=== PATIENT | male | born 1935 | race Caucasian/White ===

== ENCOUNTER 2016-12-29 12:18 | Emergency (ER) | payer MEDICARE, OTHER ==
[2016-12-29 13:20] LABS: BASO % 0.6 % (0.0-1.0); EOS % 0.7 % (0.0-3.0); LARGE UNSTAINED CELL # 0.1 K/mm3 (0.0-0.4); LARGE UNSTAINED CELL % 0.9 % (0.0-4.0); LYMPH # 0.5 K/mm3 (1.5-4.5); LYMPH % 5.9 % (24.0-44.0); MEAN CORPUSCULAR HEMOGLOBIN 30.9 pg (27.0-33.0); MEAN CORPUSCULAR HGB CONC 32.6 g/dl (32.0-36.5); MONO # 0.4 K/mm3 (0.0-0.8); MONO % 6.5 % (0.0-5.0); NEUTROPHILS # 5.8 K/mm3 (1.8-7.7); NEUTROPHILS % 85.4 % (36.0-66.0); PLATELET COUNT, AUTOMATED 149 k/mm3 (150-450); WHITE BLOOD COUNT 6.7 K/mm3 (4.0-10.0)
[2016-12-29 13:29] LABS: INR 0.95
[2016-12-29 13:37] LABS: CREATININE FOR GFR 1.33 MG/DL (0.70-1.30); GLOMERULAR FILTRATION RATE 54.9 (>35); POTASSIUM SERUM 4.1 MEQ/L (3.5-5.1)
[2016-12-29] MEDS ORDERED: CLOPIDOGREL 75 MG TAB As Ordered ONE (15:30)
--- NOTE | 2016-12-29 15:48 | EDDOCDS ---
Physician Documentation [facility] Name: Pablo Claudio Age: 81 yrs Sex: Male : 1935 Arrival Date: 12/29/2016 Time: 12:18 Bed 18 Private MD: Jaguar Bloom Disposition: 12/29 15:26 Critical Care: Critical care not applicable. danisha Disposition: 12/29/16 15:18 Discharged to Home/Self Care. Impression: Other peripheral vascular diseases - arterial, with toe pain. - Condition is Stable. - Discharge Instructions: Peripheral Vascular Disease. - Prescriptions for Plavix 75 mg Oral Tablet - take 1 tablet by ORAL route once daily; 20 tablet. - Medication Reconciliation, Local Pharmacy Hours form. - Follow up: Private Physician; When: Call to arrange an appointment; Reason: Recheck today's complaints, Continuance of care. - Problem is new. - Symptoms are unchanged. - Notes: Call [facility] Vascular Surgery, 1st thing Saturday morning , to schedule a same day appointment with Dr Esposito or one of his colleagues Fill prescription for Plavix and start tomorrow (1st dose given in the ED) Return to the ED for any further concerns Historical: - Allergies: Methotrexate (affecting kidneys); Metformin HCl (affects kidneys); - Home Meds: 1. levothyroxine 112 mcg oral cap once daily 2. Nexium 40 mg Oral cpDR 1 cap once daily 3. metoprolol tartrate 25 mg Oral tab 1 tab 2 times per day 4. aspirin 81 mg Oral chew 1 tab once daily 5. Tradjenta 5 mg oral tab 1 tab once daily 6. folic acid 1 mg Oral tab once daily 7. furosemide 20 mg Oral tab 1 tab once daily 8. ibersartan 9. docusate sodium 100 mg Oral cap 1 cap once daily 10. Vitamin D Oral 1000 unit daily 11. Crestor 5 mg Oral tab 1 tab once daily 12. gabapentin 300 mg Oral Tb24 three times a day - PMHx: [place]; Thyroid problem; Hypercholesterolemia; Hypertension; Diabetes - NIDDM: controlled; kidney failure; - PSHx: Carotid Endarterectomy; Angioplasty; cardiac bypass; memory problems; - Social history: Smoking status: Patient states former smoker of tobacco. No barriers to communication noted, The patient speaks fluent Belarusian, Speaks appropriately for age. - Family history: Not pertinent. - : The pt / caregiver states he / she is not on anticoagulants. Home medication list is obtained from the patient, family members. - Exposure Risk Screening:: None identified. Vital Signs: 12:20 BP 205 / 90; Pulse 84; Resp 18; Temp 97.1(O); Pulse Ox 95% on R/A; Weight 83.46 kg / lr2 184 lbs (R); Height 5 ft. 8 in. (172.72 cm) (R); Pain 3/10; 13:24 BP 167 / 79 RA Sitting (auto/); jf3 14:30 BP 172 / ??? LA Sitting; jf3 14:30 BP 176 / ??? RA Sitting; jf3 14:30 BP 118 / ??? RL Sitting; jf3 14:30 BP 162 / ??? LL Sitting; jf3 15:39 BP 190 / 86 RA Sitting (man/lg); Pulse 73; Resp 18; Temp 98.6(O); Pulse Ox 99% on R/A; nb2 Pain 0/10; 12:20 Body Mass Index 27.98 (83.46 kg, 172.72 cm) lr2 14:30 doppler brachial SBP jf3 14:30 doppler brachial SBP jf3 14:30 doppler anterior ankle SBP jf3 14:30 doppler anterior ankle SBP jf3 15:39 RN aware of BP nb2 MDM: 12:36 Misc. Nursing Order ordered. le 12:52 IV Saline Lock ordered. le 12:52 morphine 2 mg IVP every 15 minutes; Document pain score/vitals after each dose (Hold if le SBP < 90mmHg) x3 ordered. 12:53 CBC with Diff Ordered. EDMS 12:53 BMP Ordered. EDMS 12:53 PTT Ordered. EDMS 12:53 PT/INR Ordered. EDMS 12:58 Lactic Acid (Hallman tube on ice) Ordered. EDMS 13:18 Financial registration complete. lg 13:41 CBC with Diff Reviewed. le 13:41 BMP Reviewed. le 13:41 PTT Reviewed. le 13:41 PT/INR Reviewed. le 13:41 Lactic Acid (Hallman tube on ice) Reviewed. le 13:48 Misc. Nursing Order ordered. le 13:53 [facility] [place] Payment Agreement was scanned into [employer] and attached to record. lg 15:13 Plavix - Clopidogrel 75 mg PO once ordered. le 15:15 Fluid Challenge ordered. le 15:47 morphine 2 mg IVP every 15 minutes; Document pain score/vitals after each dose (Hold if jf3 SBP < 90mmHg) x3 ordered. Administered Medications: 15:32 Drug: Plavix - Clopidogrel 75 mg [clopidogrel 75 mg tablet (1 tabs)] Route: PO; dsf 15:47 Follow up: Response: Pt left department before re-evaluation is appropriate jf3 15:47 Not Given (Patient Refused): morphine 2 mg IVP every 15 minutes; Document pain jf3 score/vitals after each dose (Hold if SBP < 90mmHg) x3 Signatures: Dispatcher [employer] EDMS Olga Marcelo RN RN srm James Carey, Nilesh Reg lg Rossy Arias FNP SPREADING MACHINE OPERATORLenny Foster RN RN jf3 Juliette Valdez RN dsf The chart was reviewed and I authenticate all verbal orders and agree with the evaluation and treatment provided.Attachments: 13:53 [facility] Payment Agreement lg MTDD
--- NOTE | 2016-12-29 15:48 | EDDOCDS ---
Nurse's Notes [facility] Name: Pablo Claudio Age: 81 yrs Sex: Male : 1935 Arrival Date: 12/29/2016 Time: 12:18 Bed 18 Private MD: Jaguar Bloom Diagnosis: Other peripheral vascular diseases-arterial, with toe pain Presentation: 12/29 12:28 Presenting complaint: states: went to [facility] for pain in right pinky srm toe for 2-3 days. had xray done. provider there stated no pulses to right foot and toes turning black. Adult Sepsis Screening: The patient does not have new or worsening altered mentation. Patient's respiratory rate is less than 22. Systolic blood pressure is greater than 100. Patient has a qSOFA score of 0- Negative Sepsis Screen. Suicide/Homicide risk assessment- the patient denies having any suicidal and/or homicidal ideations and does not present with any other emotional, behavioral or mental health complaints. Status: Patient is not a director of cardiopulmonary services or dependent. Transition of care: patient was not received from another setting of care. 12:28 Acuity: FLORINDA Level 3 [facility] 12:28 Method Of Arrival: Wheelchair [facility] Triage Assessment: 12:38 General: Appears in no apparent distress, Behavior is appropriate for age, cooperative. srm Pain: Pain currently is 2 out of 10 on a pain scale. At worst was 10 out of 10 on a pain scale. Derm: Historical: - Allergies: Methotrexate (affecting kidneys); Metformin HCl (affects kidneys); - Home Meds: 1. levothyroxine 112 mcg oral cap once daily 2. Nexium 40 mg Oral cpDR 1 cap once daily 3. metoprolol tartrate 25 mg Oral tab 1 tab 2 times per day 4. aspirin 81 mg Oral chew 1 tab once daily 5. Tradjenta 5 mg oral tab 1 tab once daily 6. folic acid 1 mg Oral tab once daily 7. furosemide 20 mg Oral tab 1 tab once daily 8. ibersartan 9. docusate sodium 100 mg Oral cap 1 cap once daily 10. Vitamin D Oral 1000 unit daily 11. Crestor 5 mg Oral tab 1 tab once daily 12. gabapentin 300 mg Oral Tb24 three times a day - PMHx: [place]; Thyroid problem; Hypercholesterolemia; Hypertension; Diabetes - NIDDM: controlled; kidney failure; - PSHx: Carotid Endarterectomy; Angioplasty; cardiac bypass; memory problems; - Social history: Smoking status: Patient states former smoker of tobacco. No barriers to communication noted, The patient speaks fluent Lao, Speaks appropriately for age. - Family history: Not pertinent. - : The pt / caregiver states he / she is not on anticoagulants. Home medication list is obtained from the patient, family members. - Exposure Risk Screening:: None identified. Screenin:51 Screening information is obtained from the patient. Fall risk: At risk due to injury, jf3 The following interventions are performed due to a positive Fall Risk Screen: Fall Risk is added to Special Handling on the patient Summary Screen. A Fall Risk Bracelet was applied to the patient. Side Rails are placed in the up position. A Call Ralph is given with instruction to call for help when getting out of bed. Fall Alert bracelet is placed on the patient. Assistance ADL's: requires no assistance with activities of daily living. Abuse/DV Screen: The patient / caregiver reports he/she is: not in a situation that causes fear, pain or injury. Nutritional screening: No deficits noted. Advance Directives: Currently, there is a health care proxy, Martha Claudio, . There is no active DNR order. home support is adequate. 12:55 Fall Risk. jf3 Assessment: 12:51 Adult Sepsis Screening: The patient does not have new or worsening altered mentation. jf3 Patient's respiratory rate is less than 22. Systolic blood pressure is greater than 100. Patient has a qSOFA score of 0- Negative Sepsis Screen. General: Appears in no apparent distress, comfortable, Behavior is cooperative. Pain: Location: plantar aspect of right fifth toe, right fifth toe and Right fifth toenail Pain currently is 5 out of 10 on a pain scale. At worst was 10 out of 10 on a pain scale. Neurological: Level of Consciousness is awake, alert, Oriented to person, place, time. Cardiovascular: Capillary refill < 3 seconds Heart tones S1 S2 present Chest pain is denied. Respiratory: Airway is patent Respiratory effort is even, unlabored, Respiratory pattern is regular, symmetrical, Breath sounds with rhonchi in left posterior lower lobe and right posterior lower lobe Denies shortness of breath. GI: Abdomen is non- distended Bowel sounds present X 4 quads. Abd is soft and non tender X 4 quads. Derm: Right pinky toe is dark purple/black. pt has small open sores generalized on body. Pt states this is normal for him. 13:01 General: Pt states pain is currently 0/10 and only has pain when toe is palpated or jf3 used. States he does not want pain medication at this time; may request later. Provider aware. Pain: Denies pain. 14:00 General: Appears in no apparent distress, comfortable, Behavior is cooperative, Pt jf3 resting supine on stretcher with family at bedside. Respirations easy and unlabored. Denies pain. 14:33 General: Doppler brachial and ankle SBP's reported to provider. jf3 15:32 General: pt drinking sprite without difficulty . dsf 15:44 General: Appears in no apparent distress, comfortable, Behavior is cooperative. Pain: jf3 Denies pain. Neurological: Level of Consciousness is awake, alert, Oriented to person, place, time. Cardiovascular: Capillary refill < 3 seconds Chest pain is denied. Respiratory: Airway is patent Respiratory effort is even, unlabored, Respiratory pattern is regular, symmetrical, Denies shortness of breath. Derm: Skin is normal. Vital Signs: 12:20 BP 205 / 90; Pulse 84; Resp 18; Temp 97.1(O); Pulse Ox 95% on R/A; Weight 83.46 kg (R); lr2 Height 5 ft. 8 in. (172.72 cm) (R); Pain 3/10; 13:24 BP 167 / 79 RA Sitting (auto/); jf3 14:30 BP 172 / ??? LA Sitting; jf3 14:30 BP 176 / ??? RA Sitting; jf3 14:30 BP 118 / ??? RL Sitting; jf3 14:30 BP 162 / ??? LL Sitting; jf3 15:39 BP 190 / 86 RA Sitting (man/lg); Pulse 73; Resp 18; Temp 98.6(O); Pulse Ox 99% on R/A; nb2 Pain 0/10; 12:20 Body Mass Index 27.98 (83.46 kg, 172.72 cm) lr2 14:30 doppler brachial SBP jf3 14:30 doppler brachial SBP jf3 14:30 doppler anterior ankle SBP jf3 14:30 doppler anterior ankle SBP jf3 15:39 RN aware of BP nb2 Vitals: 12:20 Log In Time: December 29, 2016 at 12:18. lr2 ED Course: 12:19 Patient visited by Rosa Barahona. lr2 12:19 Patient moved to Waiting lr2 12:20 Jaguar Bloom MD is Private Physician. lr2 12:21 Patient moved to Pre RCE lr2 12:23 Patient moved to 18 srm 12:24 [facility] le 12:31 Triage Initiated srm 12:41 Patient visited by Rossy Arias FNP. le 12:41 Patient visited by Rossy Arias FNP. le 12:51 The patient / caregiver is instructed regarding the plan of care and ED course. jf3 13:16 Lactic Acid (Hallman tube on ice) Sent. jf3 13:16 PT/INR Sent. jf3 13:16 PTT Sent. jf3 13:16 BMP Sent. jf3 13:16 CBC with Diff Sent. jf3 13:16 Inserted saline lock: 20 gauge in left antecubital area The patient tolerated the jf3 procedure well. No procedures done that require assistance. 13:25 Patient visited by Lenny Gay RN. jf3 13:53 [facility] Payment Agreement was scanned into [employer] and attached to record. lg 14:33 Patient visited by Lenyn Gay RN. jf3 15:40 Patient visited by Margi Soto. nb2 15:44 Discontinued IV lock intact, bleeding controlled, pressure dressing applied, No jf3 redness/swelling at site. 15:45 Patient visited by Margi Soto. nb2 Administered Medications: 15:32 Drug: Plavix - Clopidogrel 75 mg [clopidogrel 75 mg tablet (1 tabs)] Route: PO; dsf 15:47 Follow up: Response: Pt left department before re-evaluation is appropriate jf3 15:47 Not Given (Patient Refused): morphine 2 mg IVP every 15 minutes; Document pain jf3 score/vitals after each dose (Hold if SBP < 90mmHg) x3 Order Results: Lab Order: CBC with Diff; SPEC'M 12/29/16 13:12 Test: WHITE BLOOD COUNT; Value: 6.7; Range: 4.0-10.0; Units: K/mm3; Status: F Test: RED BLOOD COUNT; Value: 4.47; Range: 4.30-6.10; Units: M/mm3; Status: F Test: HEMOGLOBIN; Value: 13.8; Range: 14.0-18.0; Abnormal: Below low normal; Units: g/dl; Status: F Test: HEMATOCRIT; Value: 42.4; Range: 42.0-52.0; Units: %; Status: F Test: MEAN CORPUSCULAR VOLUME; Value: 95.0; Range: 80.0-96.0; Units: fl; Status: F Test: MEAN CORPUSCULAR HEMOGLOBIN; Value: 30.9; Range: 27.0-33.0; Units: pg; Status: F Test: MEAN CORPUSCULAR HGB CONC; Value: 32.6; Range: 32.0-36.5; Units: g/dl; Status: F Test: RED CELL DISTRIBUTION WIDTH; Value: 13.0; Range: 11.5-14.5; Units: %; Status: F Test: PLATELET COUNT, AUTOMATED; Value: 149; Range: 150-450; Abnormal: Below low normal; Units: k/mm3; Status: F Test: NEUTROPHILS %; Value: 85.4; Range: 36.0-66.0; Abnormal: Above high normal; Units: %; Status: F Test: LYMPH %; Value: 5.9; Range: 24.0-44.0; Abnormal: Below low normal; Units: %; Status: F Test: MONO %; Value: 6.5; Range: 0.0-5.0; Abnormal: Above high normal; Units: %; Status: F Test: EOS %; Value: 0.7; Range: 0.0-3.0; Units: %; Status: F Test: BASO %; Value: 0.6; Range: 0.0-1.0; Units: %; Status: F Test: LARGE UNSTAINED CELL %; Value: 0.9; Range: 0.0-4.0; Units: %; Status: F Test: NEUTROPHILS #; Value: 5.8; Range: 1.8-7.7; Units: K/mm3; Status: F Test: LYMPH #; Value: 0.5; Range: 1.5-4.5; Abnormal: Below low normal; Units: K/mm3; Status: F Test: MONO #; Value: 0.4; Range: 0.0-0.8; Units: K/mm3; Status: F Test: EOS #; Value: 0.0; Range: 0.0-0.50; Units: K/mm3; Status: F Test: BASO #; Value: 0.0; Range: 0.0-0.2; Units: K/mm3; Status: F Test: LARGE UNSTAINED CELL #; Value: 0.1; Range: 0.0-0.4; Units: K/mm3; Status: F Lab Order: BMP; SPEC'M 12/29/16 13:12 Test: GLUCOSE, FASTING; Value: 167; Range: 83-110; Abnormal: Above high normal; Units: MG/DL; Status: F Test: BLOOD UREA NITROGEN; Value: 23; Range: 7-18; Abnormal: Above high normal; Units: MG/DL; Status: F Test: CREATININE FOR GFR; Value: 1.33; Range: 0.70-1.30; Abnormal: Above high normal; Units: MG/DL; Status: F Test: GLOMERULAR FILTRATION RATE; Value: 54.9; Range: >35; Status: F Test: SODIUM LEVEL; Value: 141; Range: 136-145; Units: MEQ/L; Status: F Test: POTASSIUM SERUM; Value: 4.1; Range: 3.5-5.1; Units: MEQ/L; Status: F Test: CHLORIDE LEVEL; Value: 103; Range: 98-107; Units: MEQ/L; Status: F Test: CARBON DIOXIDE LEVEL; Value: 32; Range: 21-32; Units: MEQ/L; Status: F Test: ANION GAP; Value: 6; Range: 8-16; Abnormal: Below low normal; Units: MEQ/L; Status: F Test: CALCIUM LEVEL; Value: 9.0; Range: 8.8-10.2; Units: MG/DL; Status: F Test Note: ; Units are mL/min/1.73 m2 Chronic Kidney Disease Staging per NKF: Stage I & II GFR >=60 Normal to Mildly Decreased Stage III GFR 30-59 Moderately Decreased Stage IV GFR 15-29 Severely Decreased Stage V GFR <15 Very Little GFR Left ESRD GFR <15 on SUPERINTENDENT OVERHEAD DISTRIBUTION Lab Order: PTT; SPEC'M 12/29/16 13:12 Test: PARTIAL THROMBOPLASTIN TIME; Value: 28.8; Range: 26.6-37.1; Units: SECONDS; Status: F Lab Order: PT/INR; SPEC'M 12/29/16 13:12 Test: PROTHROMBIN TIME; Value: 12.8; Range: 12.3-14.5; Units: SECONDS; Status: F Test: INR; Value: 0.95; Status: F Test Note: ; THERAPUTIC HUMAN INR VALUES INDICATIONS NORMAL RANGES PROPHYLAXIS/TREATMENT OF: VENOUS THROMBOSIS 2.0-3.0 PULMONARY EMBOLISM 2.0-3.0 PREVENTION OF SYSTEMIC EMBOLISM FROM: TISSUE HEART VALVES 2.0-3.0 ACUTE MYOCARDIAL INFARCTION 2.0-3.0 VALVULAR HEART DISEASE 2.0-3.0 ATRIAL FIBRILLATION 2.0-3.0 MECHANICAL VALVES(HIGH RISK) 2.5-3.5 RECURRENT MYOCARDIAL INFARCTION 2.5-3.5 Lab Order: Lactic Acid (Hallman tube on ice); SPEC'M 12/29/16 13:12 Test: LACTIC ACID SEPSIS PROTOCOL; Value: 1.3; Range: 0.4-2.0; Units: MMOL/L; Status: F Outcome: 15:18 Discharge ordered by Provider. danisha 15:44 Discharge Assessment: Patient awake, alert and oriented x 3. No cognitive and/or jf3 functional deficits noted. Patient verbalized understanding of disposition instructions. patient administered narcotics - no. The following High Risk Discharge criteria are identified: None. Discharged to home via wheelchair, with family. Condition: stable. Discharge instructions given to patient, family, Instructed on discharge instructions, follow up and referral plans. medication usage, Demonstrated understanding of instructions, medications, Pt was receptive of discharge instructions/ teaching. No special radiology studies were completed. Property :Personal belongings accompany Pt. 15:47 Patient left the ED. jf3 Signatures: Olga Marcelo, RN RN srm James Carey, Reg Reg lg Rossy Arais, WREATH INSPECTOR WREATH INSPECTOR Juliette Flores RN RN dsf Farman, Justin, RN RN jf3 Margi Soto2 Rosa Barahona2 Corrections: (The following items were deleted from the chart) 15:45 15:39 BP 190 / 86 Sitting Manual R Arm Large; Pulse 73bpm; Resp 18bpm; Pulse Ox 99% RA; nb2 Temp 98.6F Oral; Pain 0/10; nb2 MTDD
--- NOTE | 2016-12-31 16:48 | EDDOCDS ---
Physician Documentation [facility] Name: Pablo Claudio Age: 81 yrs Sex: Male : 1935 Arrival Date: 12/29/2016 Time: 12:18 Bed 18 Private MD: Jaguar Bloom Disposition: 12/29 15:26 Critical Care: Critical care not applicable. danisha Disposition: 12/29/16 15:18 Discharged to Home/Self Care. Impression: Other peripheral vascular diseases - arterial, with toe pain. - Condition is Stable. - Discharge Instructions: Peripheral Vascular Disease. - Prescriptions for Plavix 75 mg Oral Tablet - take 1 tablet by ORAL route once daily; 20 tablet. - Medication Reconciliation, Local Pharmacy Hours form. - Follow up: Private Physician; When: Call to arrange an appointment; Reason: Recheck today's complaints, Continuance of care. - Problem is new. - Symptoms are unchanged. - Notes: Call [facility] Vascular Surgery, 1st thing Saturday morning , to schedule a same day appointment with Dr Esposito or one of his colleagues Fill prescription for Plavix and start tomorrow (1st dose given in the ED) Return to the ED for any further concerns Historical: - Allergies: Methotrexate (affecting kidneys); Metformin HCl (affects kidneys); - Home Meds: 1. levothyroxine 112 mcg oral cap once daily 2. Nexium 40 mg Oral cpDR 1 cap once daily 3. metoprolol tartrate 25 mg Oral tab 1 tab 2 times per day 4. aspirin 81 mg Oral chew 1 tab once daily 5. Tradjenta 5 mg oral tab 1 tab once daily 6. folic acid 1 mg Oral tab once daily 7. furosemide 20 mg Oral tab 1 tab once daily 8. ibersartan 9. docusate sodium 100 mg Oral cap 1 cap once daily 10. Vitamin D Oral 1000 unit daily 11. Crestor 5 mg Oral tab 1 tab once daily 12. gabapentin 300 mg Oral Tb24 three times a day - PMHx: [place]; Thyroid problem; Hypercholesterolemia; Hypertension; Diabetes - NIDDM: controlled; kidney failure; - PSHx: Carotid Endarterectomy; Angioplasty; cardiac bypass; memory problems; - Social history: Smoking status: Patient states former smoker of tobacco. No barriers to communication noted, The patient speaks fluent Faroese, Speaks appropriately for age. - Family history: Not pertinent. - : The pt / caregiver states he / she is not on anticoagulants. Home medication list is obtained from the patient, family members. - Exposure Risk Screening:: None identified. Vital Signs: 12:20 BP 205 / 90; Pulse 84; Resp 18; Temp 97.1(O); Pulse Ox 95% on R/A; Weight 83.46 kg / lr2 184 lbs (R); Height 5 ft. 8 in. (172.72 cm) (R); Pain 3/10; 13:24 BP 167 / 79 RA Sitting (auto/); jf3 14:30 BP 172 / ??? LA Sitting; jf3 14:30 BP 176 / ??? RA Sitting; jf3 14:30 BP 118 / ??? RL Sitting; jf3 14:30 BP 162 / ??? LL Sitting; jf3 15:39 BP 190 / 86 RA Sitting (man/lg); Pulse 73; Resp 18; Temp 98.6(O); Pulse Ox 99% on R/A; nb2 Pain 0/10; 12:20 Body Mass Index 27.98 (83.46 kg, 172.72 cm) lr2 14:30 doppler brachial SBP jf3 14:30 doppler brachial SBP jf3 14:30 doppler anterior ankle SBP jf3 14:30 doppler anterior ankle SBP jf3 15:39 RN aware of BP nb2 MDM: 12:36 Misc. Nursing Order ordered. le 12:52 IV Saline Lock ordered. le 12:52 morphine 2 mg IVP every 15 minutes; Document pain score/vitals after each dose (Hold if le SBP < 90mmHg) x3 ordered. 12:53 CBC with Diff Ordered. EDMS 12:53 BMP Ordered. EDMS 12:53 PTT Ordered. EDMS 12:53 PT/INR Ordered. EDMS 12:58 Lactic Acid (Hallman tube on ice) Ordered. EDMS 13:18 Financial registration complete. lg 13:41 CBC with Diff Reviewed. le 13:41 BMP Reviewed. le 13:41 PTT Reviewed. le 13:41 PT/INR Reviewed. le 13:41 Lactic Acid (Hallman tube on ice) Reviewed. le 13:48 Misc. Nursing Order ordered. le 13:53 [facility] [place] Payment Agreement was scanned into [employer] and attached to record. lg 15:13 Plavix - Clopidogrel 75 mg PO once ordered. le 15:15 Fluid Challenge ordered. le 15:47 morphine 2 mg IVP every 15 minutes; Document pain score/vitals after each dose (Hold if jf3 SBP < 90mmHg) x3 ordered. 12/30 12:09 T-Sheet-- Draft Copy was scanned into [employer] and attached to record. gb Administered Medications: 12/29 15:32 Drug: Plavix - Clopidogrel 75 mg [clopidogrel 75 mg tablet (1 tabs)] Route: PO; dsf 15:47 Follow up: Response: Pt left department before re-evaluation is appropriate jf3 15:47 Not Given (Patient Refused): morphine 2 mg IVP every 15 minutes; Document pain jf3 score/vitals after each dose (Hold if SBP < 90mmHg) x3 Signatures: Dispatcher [employer] EDMS Olga Marcelo, RN RN [facility] Priyanka Kumar, Reg Reg gb James Carey, Reg Reg lg Rossy Arias, MANAGER CORPORATE RESPONSIBILITY MANAGER CORPORATE RESPONSIBILITY Lenny Tee RN RN jf3 Fuller, Desiree RN dsf The chart was reviewed and I authenticate all verbal orders and agree with the evaluation and treatment provided.Attachments: 13:53 [facility] Payment Agreement lg 12/30 12:09 T-Sheet-- Draft Copy gb Chart Complete MTDD
--- NOTE | 2016-12-31 16:49 | EDDOCDS ---
Nurse's Notes [facility] Name: Pablo Claudio Age: 81 yrs Sex: Male : 1935 Arrival Date: 12/29/2016 Time: 12:18 Bed 18 Private MD: Jaguar Bloom Diagnosis: Other peripheral vascular diseases-arterial, with toe pain Presentation: 12/29 12:28 Presenting complaint: states: went to [facility] for pain in right pinky srm toe for 2-3 days. had xray done. provider there stated no pulses to right foot and toes turning black. Adult Sepsis Screening: The patient does not have new or worsening altered mentation. Patient's respiratory rate is less than 22. Systolic blood pressure is greater than 100. Patient has a qSOFA score of 0- Negative Sepsis Screen. Suicide/Homicide risk assessment- the patient denies having any suicidal and/or homicidal ideations and does not present with any other emotional, behavioral or mental health complaints. Status: Patient is not a fitness services manager or dependent. Transition of care: patient was not received from another setting of care. 12:28 Acuity: [facility] 12:28 Method Of Arrival: [facility] Triage Assessment: 12:38 General: Appears in no apparent distress, Behavior is appropriate for age, cooperative. srm Pain: Pain currently is 2 out of 10 on a pain scale. At worst was 10 out of 10 on a pain scale. Derm: Historical: - Allergies: Methotrexate (affecting kidneys); Metformin HCl (affects kidneys); - Home Meds: 1. levothyroxine 112 mcg oral cap once daily 2. Nexium 40 mg Oral cpDR 1 cap once daily 3. metoprolol tartrate 25 mg Oral tab 1 tab 2 times per day 4. aspirin 81 mg Oral chew 1 tab once daily 5. Tradjenta 5 mg oral tab 1 tab once daily 6. folic acid 1 mg Oral tab once daily 7. furosemide 20 mg Oral tab 1 tab once daily 8. ibersartan 9. docusate sodium 100 mg Oral cap 1 cap once daily 10. Vitamin D Oral 1000 unit daily 11. Crestor 5 mg Oral tab 1 tab once daily 12. gabapentin 300 mg Oral Tb24 three times a day - PMHx: CT; Thyroid problem; Hypercholesterolemia; Hypertension; Diabetes - NIDDM: controlled; kidney failure; - PSHx: Carotid Endarterectomy; Angioplasty; cardiac bypass; memory problems; - Social history: Smoking status: Patient states former smoker of tobacco. No barriers to communication noted, The patient speaks fluent Albanian, Speaks appropriately for age. - Family history: Not pertinent. - : The pt / caregiver states he / she is not on anticoagulants. Home medication list is obtained from the patient, family members. - Exposure Risk Screening:: None identified. Screenin:51 Screening information is obtained from the patient. Fall risk: At risk due to injury, jf3 The following interventions are performed due to a positive Fall Risk Screen: Fall Risk is added to Special Handling on the patient Summary Screen. A Fall Risk Bracelet was applied to the patient. Side Rails are placed in the up position. A Call Ralph is given with instruction to call for help when getting out of bed. Fall Alert bracelet is placed on the patient. Assistance ADL's: requires no assistance with activities of daily living. Abuse/DV Screen: The patient / caregiver reports he/she is: not in a situation that causes fear, pain or injury. Nutritional screening: No deficits noted. Advance Directives: Currently, there is a health care proxy, Martha Claudio, . There is no active DNR order. home support is adequate. 12:55 Fall Risk. jf3 Assessment: 12:51 Adult Sepsis Screening: The patient does not have new or worsening altered mentation. jf3 Patient's respiratory rate is less than 22. Systolic blood pressure is greater than 100. Patient has a qSOFA score of 0- Negative Sepsis Screen. General: Appears in no apparent distress, comfortable, Behavior is cooperative. Pain: Location: plantar aspect of right fifth toe, right fifth toe and Right fifth toenail Pain currently is 5 out of 10 on a pain scale. At worst was 10 out of 10 on a pain scale. Neurological: Level of Consciousness is awake, alert, Oriented to person, place, time. Cardiovascular: Capillary refill < 3 seconds Heart tones S1 S2 present Chest pain is denied. Respiratory: Airway is patent Respiratory effort is even, unlabored, Respiratory pattern is regular, symmetrical, Breath sounds with rhonchi in left posterior lower lobe and right posterior lower lobe Denies shortness of breath. GI: Abdomen is non- distended Bowel sounds present X 4 quads. Abd is soft and non tender X 4 quads. Derm: Right pinky toe is dark purple/black. pt has small open sores generalized on body. Pt states this is normal for him. 13:01 General: Pt states pain is currently 0/10 and only has pain when toe is palpated or jf3 used. States he does not want pain medication at this time; may request later. Provider aware. Pain: Denies pain. 14:00 General: Appears in no apparent distress, comfortable, Behavior is cooperative, Pt jf3 resting supine on stretcher with family at bedside. Respirations easy and unlabored. Denies pain. 14:33 General: Doppler brachial and ankle SBP's reported to provider. jf3 15:32 General: pt drinking sprite without difficulty . dsf 15:44 General: Appears in no apparent distress, comfortable, Behavior is cooperative. Pain: jf3 Denies pain. Neurological: Level of Consciousness is awake, alert, Oriented to person, place, time. Cardiovascular: Capillary refill < 3 seconds Chest pain is denied. Respiratory: Airway is patent Respiratory effort is even, unlabored, Respiratory pattern is regular, symmetrical, Denies shortness of breath. Derm: Skin is normal. Vital Signs: 12:20 BP 205 / 90; Pulse 84; Resp 18; Temp 97.1(O); Pulse Ox 95% on R/A; Weight 83.46 kg (R); lr2 Height 5 ft. 8 in. (172.72 cm) (R); Pain 3/10; 13:24 BP 167 / 79 RA Sitting (auto/); jf3 14:30 BP 172 / ??? LA Sitting; jf3 14:30 BP 176 / ??? RA Sitting; jf3 14:30 BP 118 / ??? RL Sitting; jf3 14:30 BP 162 / ??? LL Sitting; jf3 15:39 BP 190 / 86 RA Sitting (man/lg); Pulse 73; Resp 18; Temp 98.6(O); Pulse Ox 99% on R/A; nb2 Pain 0/10; 12:20 Body Mass Index 27.98 (83.46 kg, 172.72 cm) lr2 14:30 doppler brachial SBP jf3 14:30 doppler brachial SBP jf3 14:30 doppler anterior ankle SBP jf3 14:30 doppler anterior ankle SBP jf3 15:39 RN aware of BP nb2 Vitals: 12:20 Log In Time: December 29, 2016 at 12:18. lr2 ED Course: 12:19 Patient visited by Rosa Barahona. lr2 12:19 Patient moved to Waiting lr2 12:20 Jaguar Bloom MD is Private Physician. lr2 12:21 Patient moved to Pre RCE lr2 12:23 Patient moved to 18 srm 12:24 [facility] Arias FNP [facility] le 12:31 Triage Initiated srm 12:41 Patient visited by Rossy Arias FNP. le 12:41 Patient visited by Rossy Arias FNP. le 12:51 The patient / caregiver is instructed regarding the plan of care and ED course. jf3 13:16 Lactic Acid (Hallman tube on ice) Sent. jf3 13:16 PT/INR Sent. jf3 13:16 PTT Sent. jf3 13:16 BMP Sent. jf3 13:16 CBC with Diff Sent. jf3 13:16 Inserted saline lock: 20 gauge in left antecubital area The patient tolerated the jf3 procedure well. No procedures done that require assistance. 13:25 Patient visited by Lenny Gay RN. jf3 13:53 [facility] Payment Agreement was scanned into [employer] and attached to record. lg 14:33 Patient visited by Lenny Gay RN. jf3 15:40 Patient visited by Margi Soto. nb2 15:44 Discontinued IV lock intact, bleeding controlled, pressure dressing applied, No jf3 redness/swelling at site. 15:45 Patient visited by Margi Soto. nb2 12/30 12:09 T-Sheet-- Draft Copy was scanned into [employer] and attached to record. gb Administered Medications: 12/29 15:32 Drug: Plavix - Clopidogrel 75 mg [clopidogrel 75 mg tablet (1 tabs)] Route: PO; dsf 15:47 Follow up: Response: Pt left department before re-evaluation is appropriate jf3 15:47 Not Given (Patient Refused): morphine 2 mg IVP every 15 minutes; Document pain jf3 score/vitals after each dose (Hold if SBP < 90mmHg) x3 Order Results: Lab Order: CBC with Diff; SPEC'M 12/29/16 13:12 Test: WHITE BLOOD COUNT; Value: 6.7; Range: 4.0-10.0; Units: K/mm3; Status: F Test: RED BLOOD COUNT; Value: 4.47; Range: 4.30-6.10; Units: M/mm3; Status: F Test: HEMOGLOBIN; Value: 13.8; Range: 14.0-18.0; Abnormal: Below low normal; Units: g/dl; Status: F Test: HEMATOCRIT; Value: 42.4; Range: 42.0-52.0; Units: %; Status: F Test: MEAN CORPUSCULAR VOLUME; Value: 95.0; Range: 80.0-96.0; Units: fl; Status: F Test: MEAN CORPUSCULAR HEMOGLOBIN; Value: 30.9; Range: 27.0-33.0; Units: pg; Status: F Test: MEAN CORPUSCULAR HGB CONC; Value: 32.6; Range: 32.0-36.5; Units: g/dl; Status: F Test: RED CELL DISTRIBUTION WIDTH; Value: 13.0; Range: 11.5-14.5; Units: %; Status: F Test: PLATELET COUNT, AUTOMATED; Value: 149; Range: 150-450; Abnormal: Below low normal; Units: k/mm3; Status: F Test: NEUTROPHILS %; Value: 85.4; Range: 36.0-66.0; Abnormal: Above high normal; Units: %; Status: F Test: LYMPH %; Value: 5.9; Range: 24.0-44.0; Abnormal: Below low normal; Units: %; Status: F Test: MONO %; Value: 6.5; Range: 0.0-5.0; Abnormal: Above high normal; Units: %; Status: F Test: EOS %; Value: 0.7; Range: 0.0-3.0; Units: %; Status: F Test: BASO %; Value: 0.6; Range: 0.0-1.0; Units: %; Status: F Test: LARGE UNSTAINED CELL %; Value: 0.9; Range: 0.0-4.0; Units: %; Status: F Test: NEUTROPHILS #; Value: 5.8; Range: 1.8-7.7; Units: K/mm3; Status: F Test: LYMPH #; Value: 0.5; Range: 1.5-4.5; Abnormal: Below low normal; Units: K/mm3; Status: F Test: MONO #; Value: 0.4; Range: 0.0-0.8; Units: K/mm3; Status: F Test: EOS #; Value: 0.0; Range: 0.0-0.50; Units: K/mm3; Status: F Test: BASO #; Value: 0.0; Range: 0.0-0.2; Units: K/mm3; Status: F Test: LARGE UNSTAINED CELL #; Value: 0.1; Range: 0.0-0.4; Units: K/mm3; Status: F Lab Order: [facility]; SPEC'M 12/29/16 13:12 Test: GLUCOSE, FASTING; Value: 167; Range: 83-110; Abnormal: Above high normal; Units: MG/DL; Status: F Test: BLOOD UREA NITROGEN; Value: 23; Range: 7-18; Abnormal: Above high normal; Units: MG/DL; Status: F Test: CREATININE FOR GFR; Value: 1.33; Range: 0.70-1.30; Abnormal: Above high normal; Units: MG/DL; Status: F Test: GLOMERULAR FILTRATION RATE; Value: 54.9; Range: >35; Status: F Test: SODIUM LEVEL; Value: 141; Range: 136-145; Units: MEQ/L; Status: F Test: POTASSIUM SERUM; Value: 4.1; Range: 3.5-5.1; Units: MEQ/L; Status: F Test: CHLORIDE LEVEL; Value: 103; Range: 98-107; Units: MEQ/L; Status: F Test: CARBON DIOXIDE LEVEL; Value: 32; Range: 21-32; Units: MEQ/L; Status: F Test: ANION GAP; Value: 6; Range: 8-16; Abnormal: Below low normal; Units: MEQ/L; Status: F Test: CALCIUM LEVEL; Value: 9.0; Range: 8.8-10.2; Units: MG/DL; Status: F Test Note: ; Units are mL/min/1.73 m2 Chronic Kidney Disease Staging per NKF: Stage I & II GFR >=60 Normal to Mildly Decreased Stage III GFR 30-59 Moderately Decreased Stage IV GFR 15-29 Severely Decreased Stage V GFR <15 Very Little GFR Left ESRD GFR <15 on MEDICAL VIDEOGRAPHER Lab Order: PTT; [facility] 12/29/16 13:12 Test: PARTIAL THROMBOPLASTIN TIME; Value: 28.8; Range: 26.6-37.1; Units: SECONDS; Status: F Lab Order: PT/INR; [facility] 12/29/16 13:12 Test: PROTHROMBIN TIME; Value: 12.8; Range: 12.3-14.5; Units: SECONDS; Status: F Test: INR; Value: 0.95; Status: F Test Note: ; THERAPUTIC HUMAN INR VALUES INDICATIONS NORMAL RANGES PROPHYLAXIS/TREATMENT OF: VENOUS THROMBOSIS 2.0-3.0 PULMONARY EMBOLISM 2.0-3.0 PREVENTION OF SYSTEMIC EMBOLISM FROM: TISSUE HEART VALVES 2.0-3.0 ACUTE MYOCARDIAL INFARCTION 2.0-3.0 VALVULAR HEART DISEASE 2.0-3.0 ATRIAL FIBRILLATION 2.0-3.0 MECHANICAL VALVES(HIGH RISK) 2.5-3.5 RECURRENT MYOCARDIAL INFARCTION 2.5-3.5 Lab Order: Lactic Acid (Hallman tube on ice); [facility] 12/29/16 13:12 Test: LACTIC ACID SEPSIS PROTOCOL; Value: 1.3; Range: 0.4-2.0; Units: MMOL/L; Status: F Outcome: 15:18 Discharge ordered by Provider. le 15:44 Discharge Assessment: Patient awake, alert and oriented x 3. No cognitive and/or jf3 functional deficits noted. Patient verbalized understanding of disposition instructions. patient administered narcotics - no. The following High Risk Discharge criteria are identified: None. Discharged to home via wheelchair, with family. Condition: stable. Discharge instructions given to patient, family, Instructed on discharge instructions, follow up and referral plans. medication usage, Demonstrated understanding of instructions, medications, Pt was receptive of discharge instructions/ teaching. No special radiology studies were completed. Property :Personal belongings accompany Pt. 15:47 Patient left the ED. jf3 Signatures: Olga Marcelo, RN RN srm Priyanka Kumar, Reg Reg gb James Carey, Reg Reg lg Rossy Arias, SECURITIES RESEARCH ANALYST SECURITIES RESEARCH ANALYST Juliette Flores RN RN dsf Lenny Gay RN RN jf3 Margi Soto2 Rosa Barahona2 Corrections: (The following items were deleted from the chart) 15:45 15:39 BP 190 / 86 Sitting Manual R Arm Large; Pulse 73bpm; Resp 18bpm; Pulse Ox 99% RA; nb2 Temp 98.6F Oral; Pain 0/10; nb2 Chart Complete MTDD
--- NOTE | 2016-12-31 16:49 | EDDOCDS ---
Physician Documentation [facility] Name: Pablo Claudio Age: 81 yrs Sex: Male : 1935 Arrival Date: 12/29/2016 Time: 12:18 Bed 18 Private MD: Jaguar Bloom Disposition: 12/29 15:26 Critical Care: Critical care not applicable. danisha Disposition: 12/29/16 15:18 Discharged to Home/Self Care. Impression: Other peripheral vascular diseases - arterial, with toe pain. - Condition is Stable. - Discharge Instructions: Peripheral Vascular Disease. - Prescriptions for Plavix 75 mg Oral Tablet - take 1 tablet by ORAL route once daily; 20 tablet. - Medication Reconciliation, Local Pharmacy Hours form. - Follow up: Private Physician; When: Call to arrange an appointment; Reason: Recheck today's complaints, Continuance of care. - Problem is new. - Symptoms are unchanged. - Notes: Call [facility], 1st thing Saturday morning , to schedule a same day appointment with Dr Esposito or one of his colleagues Fill prescription for Plavix and start tomorrow (1st dose given in the ED) Return to the ED for any further concerns Historical: - Allergies: Methotrexate (affecting kidneys); Metformin HCl (affects kidneys); - Home Meds: 1. levothyroxine 112 mcg oral cap once daily 2. Nexium 40 mg Oral cpDR 1 cap once daily 3. metoprolol tartrate 25 mg Oral tab 1 tab 2 times per day 4. aspirin 81 mg Oral chew 1 tab once daily 5. Tradjenta 5 mg oral tab 1 tab once daily 6. folic acid 1 mg Oral tab once daily 7. furosemide 20 mg Oral tab 1 tab once daily 8. ibersartan 9. docusate sodium 100 mg Oral cap 1 cap once daily 10. Vitamin D Oral 1000 unit daily 11. Crestor 5 mg Oral tab 1 tab once daily 12. gabapentin 300 mg Oral Tb24 three times a day - PMHx: OR; Thyroid problem; Hypercholesterolemia; Hypertension; Diabetes - NIDDM: controlled; kidney failure; - PSHx: Carotid Endarterectomy; Angioplasty; cardiac bypass; memory problems; - Social history: Smoking status: Patient states former smoker of tobacco. No barriers to communication noted, The patient speaks fluent Belarusian, Speaks appropriately for age. - Family history: Not pertinent. - : The pt / caregiver states he / she is not on anticoagulants. Home medication list is obtained from the patient, family members. - Exposure Risk Screening:: None identified. Vital Signs: 12:20 BP 205 / 90; Pulse 84; Resp 18; Temp 97.1(O); Pulse Ox 95% on R/A; Weight 83.46 kg / lr2 184 lbs (R); Height 5 ft. 8 in. (172.72 cm) (R); Pain 3/10; 13:24 BP 167 / 79 RA Sitting (auto/); jf3 14:30 BP 172 / ??? LA Sitting; jf3 14:30 BP 176 / ??? RA Sitting; jf3 14:30 BP 118 / ??? RL Sitting; jf3 14:30 BP 162 / ??? LL Sitting; jf3 15:39 BP 190 / 86 RA Sitting (man/lg); Pulse 73; Resp 18; Temp 98.6(O); Pulse Ox 99% on R/A; nb2 Pain 0/10; 12:20 Body Mass Index 27.98 (83.46 kg, 172.72 cm) lr2 14:30 doppler brachial SBP jf3 14:30 doppler brachial SBP jf3 14:30 doppler anterior ankle SBP jf3 14:30 doppler anterior ankle SBP jf3 15:39 RN aware of BP nb2 MDM: 12:36 Misc. Nursing Order ordered. le 12:52 IV Saline Lock ordered. le 12:52 morphine 2 mg IVP every 15 minutes; Document pain score/vitals after each dose (Hold if le SBP < 90mmHg) x3 ordered. 12:53 CBC with Diff Ordered. EDMS 12:53 BMP Ordered. EDMS 12:53 PTT Ordered. EDMS 12:53 PT/INR Ordered. EDMS 12:58 Lactic Acid (Hlalman tube on ice) Ordered. EDMS 13:18 Financial registration complete. lg 13:41 CBC with Diff Reviewed. le 13:41 BMP Reviewed. le 13:41 PTT Reviewed. le 13:41 PT/INR Reviewed. le 13:41 Lactic Acid (Hallman tube on ice) Reviewed. le 13:48 Misc. Nursing Order ordered. le 13:53 [facility] Payment Agreement was scanned into [employer] and attached to record. lg 15:13 Plavix - Clopidogrel 75 mg PO once ordered. le 15:15 Fluid Challenge ordered. le 15:47 morphine 2 mg IVP every 15 minutes; Document pain score/vitals after each dose (Hold if jf3 SBP < 90mmHg) x3 ordered. 12/30 12:09 T-Sheet-- Draft Copy was scanned into [employer] and attached to record. gb Administered Medications: 12/29 15:32 Drug: Plavix - Clopidogrel 75 mg [clopidogrel 75 mg tablet (1 tabs)] Route: PO; dsf 15:47 Follow up: Response: Pt left department before re-evaluation is appropriate jf3 15:47 Not Given (Patient Refused): morphine 2 mg IVP every 15 minutes; Document pain jf3 score/vitals after each dose (Hold if SBP < 90mmHg) x3 Signatures: Dispatcher [employer] EDMS Olga Marcelo, RN RN [facility] Priyanka Kumar, Reg Reg gb James Carey, Reg Reg lg Rossy Arias, MERCHANDISE COLLECTOR MERCHANDISE COLLECTOR Lenny Tee RN RN jf3 Fuller, Desiree RN dsf The chart was reviewed and I authenticate all verbal orders and agree with the evaluation and treatment provided.Attachments: 13:53 [facility] Payment Agreement lg 12/30 12:09 T-Sheet-- Draft Copy gb Chart Complete MTDD
== END 2016-12-29 15:47 | disposition home or self-care (01) ==
LOC: M ED 12:18
DX: I73.9 Peripheral vascular disease, unspecified (principal); M79.674 Pain in right toe(s); M85.88 Other specified disorders of bone density and structure, other site; I25.2 Old myocardial infarction; E07.9 Disorder of thyroid, unspecified; E78.00 Pure hypercholesterolemia, unspecified; I10 Essential (primary) hypertension; E11.9 Type 2 diabetes mellitus without complications; N17.9 Acute kidney failure, unspecified; Z98.62 Peripheral vascular angioplasty status; Z87.891 Personal history of nicotine dependence; Z79.82 Long term (current) use of aspirin; Z79.899 Other long term (current) drug therapy; Z88.8 Allergy status to other drugs, medicaments and biological substances

== ENCOUNTER → 2016-12-29 | Outpatient (CLI) | payer MEDICARE, OTHER ==
[~2016-12-29] MED LIST: /ESOM40CA PO; ASPI81TA83 PO; AVAP300T PO; GLIM1TAB PO; GLUC500T PO; HYDR25TA6 PO; LEVO112T PO; LOPR50TA PO; LUMIGAN OU; ROSU10TA PO; VIT D 2000 PO
--- NOTE | 2016-12-29 11:42 | REP ---
RIGHT FIFTH TOE SERIES: Four views. HISTORY: Pain and bruising. FINDINGS: Four views of the right lateral forefoot demonstrate some diffuse osteopenia. No fracture or bony erosive change is seen. No soft tissue gas or opaque foreign body is seen. The DIP joint of the 5th digit is developmentally fused. IMPRESSION: No acute bony abnormality. Soft tissue swelling. Diffuse osteopenia. Signed by Polo Contreras MD 12/29/2016 02:27 P
== END ==
LOC: M ADAMS 10:56
PROVIDERS: ATTEND Physician Assistant
DX: M85.88 Other specified disorders of bone density and structure, other site (principal)

== ENCOUNTER → 2016-12-31 | Outpatient (REF) | payer MEDICARE, OTHER ==
[2016-12-31 15:27] LABS: INR 1.01
[2016-12-31 15:32] LABS: BASO % 0.5 % (0.0-1.0); EOS # 0.1 K/mm3 (0.0-0.50); EOS % 0.8 % (0.0-3.0); LARGE UNSTAINED CELL # 0.1 K/mm3 (0.0-0.4); LARGE UNSTAINED CELL % 0.7 % (0.0-4.0); LYMPH # 0.5 K/mm3 (1.5-4.5); LYMPH % 5.5 % (24.0-44.0); MEAN CORPUSCULAR HEMOGLOBIN 30.5 pg (27.0-33.0); MEAN CORPUSCULAR HGB CONC 32.2 g/dl (32.0-36.5); MEAN CORPUSCULAR VOLUME 94.9 fl (80.0-96.0); MONO # 0.4 K/mm3 (0.0-0.8); MONO % 4.4 % (0.0-5.0); NEUTROPHILS # 7.1 K/mm3 (1.8-7.7); NEUTROPHILS % 88.2 % (36.0-66.0); PLATELET COUNT, AUTOMATED 167 k/mm3 (150-450); RED CELL DISTRIBUTION WIDTH 13.2 % (11.5-14.5)
[2016-12-31 15:50] LABS: CREATININE FOR GFR 1.6 MG/DL (0.70-1.30); GLOMERULAR FILTRATION RATE 44.4 (>35); POTASSIUM SERUM 4.5 MEQ/L (3.5-5.1)
== END ==
LOC: M LABDRWAD 15:13
PROVIDERS: ATTEND Surgery Vascular Surgery
DX: Z01.818 Encounter for other preprocedural examination (principal); I70.211 Atherosclerosis of native arteries of extremities with intermittent claudication, right leg

== ENCOUNTER → 2017-01-10 | Outpatient (REF) | payer MEDICARE, OTHER ==
[2017-01-10 13:30] LABS: CREATININE FOR GFR 1.37 MG/DL (0.70-1.30); GLOMERULAR FILTRATION RATE 53.1 (>35)
== END ==
LOC: M LABDRWAD 12:22
PROVIDERS: ATTEND Surgery Vascular Surgery
DX: R94.4 Abnormal results of kidney function studies (principal)

== ENCOUNTER → 2017-02-21 | Outpatient (REF) | payer MEDICARE, OTHER ==
[2017-02-21 20:24] LABS: BASO % 0.2 % (0.0-1.0); EOS % 0.7 % (0.0-3.0); LARGE UNSTAINED CELL # 0.1 K/mm3 (0.0-0.4); LARGE UNSTAINED CELL % 0.8 % (0.0-4.0); LYMPH # 0.3 K/mm3 (1.5-4.5); LYMPH % 3.9 % (24.0-44.0); MEAN CORPUSCULAR HEMOGLOBIN 31.4 pg (27.0-33.0); MEAN CORPUSCULAR HGB CONC 33.2 g/dl (32.0-36.5); MEAN CORPUSCULAR VOLUME 94.8 fl (80.0-96.0); MONO # 0.3 K/mm3 (0.0-0.8); MONO % 4.2 % (0.0-5.0); NEUTROPHILS # 6.1 K/mm3 (1.8-7.7); NEUTROPHILS % 90.1 % (36.0-66.0); PLATELET COUNT, AUTOMATED 134 k/mm3 (150-450); RED CELL DISTRIBUTION WIDTH 13.3 % (11.5-14.5); WHITE BLOOD COUNT 6.8 K/mm3 (4.0-10.0)
[2017-02-21 20:26] LABS: ALBUMIN 3.6 GM/DL (3.2-5.2); ALBUMIN/GLOBULIN RATIO 1.33 (1.00-1.93); ALKALINE PHOSPHATASE 66 U/L (45-117); ALT/SGPT 22 U/L (12-78); ANION GAP 3 MEQ/L (8-16); AST/SGOT 14 U/L (15-37); BILIRUBIN,DIRECT 0.2 MG/DL (0.0-0.2); BILIRUBIN,TOTAL 1.1 MG/DL (0.2-1.0); BLOOD UREA NITROGEN 28 MG/DL (7-18); CALCIUM LEVEL 8.7 MG/DL (8.8-10.2); CARBON DIOXIDE LEVEL 33 MEQ/L (21-32); CHLORIDE LEVEL 104 MEQ/L (98-107); CREATININE FOR GFR 1.35 MG/DL (0.70-1.30); GLUCOSE, FASTING 191 MG/DL (83-110); POTASSIUM SERUM 4.1 MEQ/L (3.5-5.1); SODIUM LEVEL 140 MEQ/L (136-145); TOTAL PROTEIN 6.3 GM/DL (6.4-8.2)
[2017-02-22 11:11] LABS: HEPATITIS B SURFACE ANTIBODY NEGATIVE (POSITIVE)
[2017-02-25 10:36] LABS: ALBUMIN 3.81 GM/DL (3.29-5.55); ALBUMIN % 60.5 % (55.8-66.1); GAMMA GLOBULIN % 12.4 % (11.1-18.8)
== END ==
LOC: M LABDRWAD 19:52 → M LAB REF 19:52
PROVIDERS: ATTEND Dermatology
DX: Z51.81 Encounter for therapeutic drug level monitoring (principal); Z79.899 Other long term (current) drug therapy; L28.1 Prurigo nodularis
CPT/HCPCS: 36415; 80048; 80076; 84165; 85025; 86038; 86431; 86706; 86803; G0103

== ENCOUNTER 2017-03-24 15:09 | Emergency (ER) | payer MEDICARE, OTHER ==
[~2017-03-24] VITALS: Ht 172.7 cm; Wt 83.5 kg
[2017-03-24 15:09] VITALS: BP 136/64
[2017-03-24] MEDS ORDERED: FURO20TA2 PO (15:33)
[2017-03-24] MEDS ORDERED: TRAD5TAB PO (15:33)
[2017-03-24] MEDS ORDERED: NALT50TA4 PO (15:33)
[2017-03-24] MEDS ORDERED: SYST1SOL OU (15:33)
[2017-03-24] MEDS ORDERED: CLAR10CA3 PO (15:33)
[2017-03-24] MEDS ORDERED: FOLI5INJ2 SC (15:33)
[2017-03-24] MEDS ORDERED: TRIA1CR TOP (15:33)
[2017-03-24] MEDS ORDERED: SYMB16INH INH (15:33)
[2017-03-24] MEDS ORDERED: VITATAB11 PO (15:33)
[2017-03-24] MEDS ORDERED: BIMA01SOL (15:33)
[2017-03-24] MEDS ORDERED: PRED20TA PO (17:59)
[2017-03-24] MEDS ORDERED: diphenhydrAMINE 50 MG CAP PO ONE (18:00)
[2017-03-24] MEDS ORDERED: predniSONE 20 MG TAB PO ONE (18:00)
== END 2017-03-24 18:06 | disposition home or self-care (01) ==
LOC: M ED 17:36
DX: L29.9 Pruritus, unspecified (principal); I25.10 Atherosclerotic heart disease of native coronary artery without angina pectoris; I10 Essential (primary) hypertension; E11.9 Type 2 diabetes mellitus without complications; E03.9 Hypothyroidism, unspecified; Z95.5 Presence of coronary angioplasty implant and graft; I25.2 Old myocardial infarction; Z79.899 Other long term (current) drug therapy; Z79.82 Long term (current) use of aspirin; Z88.8 Allergy status to other drugs, medicaments and biological substances; Z88.5 Allergy status to narcotic agent; Z88.1 Allergy status to other antibiotic agents

== ENCOUNTER → 2017-04-24 | Outpatient (CLI) | payer MEDICARE, OTHER ==
[~2017-04-24] MED LIST changes: +BIMA01SOL; +CLAR10CA3 PO; +FOLI5INJ2 SC; +FURO20TA2 PO; +NALT50TA4 PO; +PRED20TA PO; +SYMB16INH INH; +SYST1SOL OU; +TRAD5TAB PO; +TRIA1CR TOP; +VITATAB11 PO
[2017-04-27 14:13] LABS: E001-IGE CAT EPITHELIUM/DANDER <0.10 kU/L (Class 0); E005-IGE DOG DANDER/HAIR/EPITH <0.10 kU/L (Class 0); G006-IGE TIMOTHY GRASS <0.10 kU/L (Class 0); G008-IGE BLUEGRASS, KENTUCKY <0.10 kU/L (Class 0); H001-IGE HOUSE DUST, GREER LAB <0.10 kU/L (Class 0); M002-IGE CLADOSPORIUM herbarum <0.10 kU/L (Class 0); M003-IGE ASPERGILLUS fumigatus <0.10 kU/L (Class 0); M003-IGE D pteronyssinus <0.10 kU/L (Class 0); M006-IGE ALTERNARIA alternata <0.10 kU/L (Class 0); T001-IGE MAPLE/BOX ELDER <0.10 kU/L (Class 0); T005-IGE BEECH (AMERICAN) <0.10 kU/L (Class 0); W001-IGE RAGWEED, SHORT <0.10 kU/L (Class 0)
== END ==
LOC: M SMT 13:18
PROVIDERS: ATTEND Allergy & Immunology Allergy
DX: L20.89 Other atopic dermatitis (principal)

== ENCOUNTER 2017-08-18 15:31 | Emergency (ER) | payer MEDICARE, OTHER ==
[~2017-08-18] VITALS: Ht 172.7 cm; Wt 78.2 kg
[2017-08-18] MEDS ORDERED: CEPH500T PO (15:45)
[2017-08-18] MEDS ORDERED: predniSONE 20 MG TAB PO ONE (17:00)
[2017-08-18] MEDS ORDERED: PRED10TA2 PO (17:02)
--- NOTE | 2017-08-18 17:50 | REPUSA ---
CLINICAL HISTORY: Headache. TECHNIQUE: Multiple axial CT images were obtained through the brain without IV contrast material. COMMENTS: There is normal configuration of sella turcica. There are no intra or extra-axial collections. There is no mass effect or midline shift. There is no evidence of hematoma formation. No hydrocephalus is p resent. The ventricles are symmetrical. No abnormal calcifications are present. There is diffuse age-appropriate cerebellar and cerebral atrophy with proportionally dilated ventricl es and cortical sulci. There are bilateral periventricular and subcortical white matter hypolucencies compatible with mild c hronic microvascular disease. Otherwise, no significant focal abnormalities are seen either in the posterior fossa or supratentoria l compartment. IMPRESSION: 1. Age-appropriate cerebellar and cerebral atrophy. 2. Mild chronic microvascular disease. 3. No evidence of acute intracranial pathology. Thank you for your kind referral of this patient.
[2017-08-18 17:54] VITALS: BP 162/88
== END 2017-08-18 17:57 | disposition home or self-care (01) ==
LOC: M ED 15:31
DX: R51 Headache (principal); R21 Rash and other nonspecific skin eruption; E11.9 Type 2 diabetes mellitus without complications; I25.2 Old myocardial infarction; K57.90 Diverticulosis of intestine, part unspecified, without perforation or abscess without bleeding; Z86.73 Personal history of transient ischemic attack (TIA), and cerebral infarction without residual deficits; Z87.891 Personal history of nicotine dependence; Z79.82 Long term (current) use of aspirin; Z79.899 Other long term (current) drug therapy; Z88.5 Allergy status to narcotic agent; Z88.8 Allergy status to other drugs, medicaments and biological substances

== ENCOUNTER → 2018-01-07 | Outpatient (CLI) | payer MEDICARE, OTHER ==
[2018-01-07 19:38] LABS: HEMOGLOBIN 11.7 g/dl (14.0-18.0); MEAN CORPUSCULAR HEMOGLOBIN 29.4 pg (27.0-33.0); MEAN CORPUSCULAR HGB CONC 30.8 g/dl (32.0-36.5); MEAN CORPUSCULAR VOLUME 95.5 fl (80.0-96.0); PLATELET COUNT, AUTOMATED 186 10^3/uL (150-450); RED BLOOD COUNT 3.98 10^6/uL (4.30-6.10); RED CELL DISTRIBUTION WIDTH 16.1 % (11.5-14.5); WHITE BLOOD COUNT 9.3 10^3/uL (4.0-10.0)
[2018-01-07 20:09] LABS: ALBUMIN 3.2 GM/DL (3.2-5.2); ALKALINE PHOSPHATASE 95 U/L (45-117); ALT/SGPT 18 U/L (12-78); ANION GAP 7 MEQ/L (8-16); AST/SGOT 17 U/L (7-37); BLOOD UREA NITROGEN 17 MG/DL (7-18); CALCIUM LEVEL 8.3 MG/DL (8.8-10.2); CARBON DIOXIDE LEVEL 34 MEQ/L (21-32); CHLORIDE LEVEL 101 MEQ/L (98-107); CREATININE FOR GFR 1.27 MG/DL (0.70-1.30); GLOMERULAR FILTRATION RATE 57.8 (>35); GLUCOSE, FASTING 125 MG/DL (70-100); MAGNESIUM LEVEL 1.9 MG/DL (1.8-2.4); POTASSIUM SERUM 4.1 MEQ/L (3.5-5.1); SODIUM LEVEL 142 MEQ/L (136-145); TOTAL PROTEIN 6.4 GM/DL (6.4-8.2)
== END ==
LOC: M SMT 12:04
DX: E11.9 Type 2 diabetes mellitus without complications (principal)
CPT/HCPCS: 83735

== ENCOUNTER 2018-05-22 08:11 | Emergency (ER) | payer MEDICARE, OTHER ==
[2018-05-22] MEDS: NS 1,000 ML IV (08:15)
[2018-05-22 08:39] LABS: BASO # 0.1 10^3/uL (0.0-0.2); BASO % 0.9 % (0.0-1.0); EOS # 0.2 10^3/uL (0.0-0.50); HEMATOCRIT 32.3 % (42.0-52.0); HEMOGLOBIN 10.7 g/dl (13.5-17.5); IMMATURE GRANULOCYTE % 0.9 % (0-3.0); LYMPH # 0.3 10^3/uL (1.5-4.5); LYMPH % 5.3 % (24.0-44.0); MEAN CORPUSCULAR HEMOGLOBIN 29.2 pg (27.0-33.0); MEAN CORPUSCULAR HGB CONC 33.1 g/dl (32.0-36.5); MONO # 0.6 10^3/uL (0.0-0.8); MONO % 9.2 % (0.0-5.0); NEUTROPHILS # 5.2 10^3/uL (1.8-7.7); NEUTROPHILS % 80.7 % (36.0-66.0); PLATELET COUNT, AUTOMATED 143 10^3/uL (150-450); RED BLOOD COUNT 3.67 10^6/uL (4.30-6.10); RED CELL DISTRIBUTION WIDTH 12.7 % (11.5-14.5); WHITE BLOOD COUNT 6.4 10^3/uL (4.0-10.0)
[2018-05-22 08:56] LABS: VENOUS BASE EXCESS 3.8 (-2.0-2.0); VENOUS HCO3 29.1 MEQ/L (23.0-27.0); VENOUS PARTIAL PRESSURE CO2 47.2 mmHg (38.0-50.0); VENOUS PARTIAL PRESSURE O2 91.1 mmHg (30.0-50.0); VENOUS PH 7.408 UNITS (7.330-7.430); VENOUS STANDARD HCO3 27.8 MEQ/L; VENOUS TOTAL CO2 30.6 MEQ/L (24.0-28.0)
[2018-05-22 09:11] LABS: ALBUMIN 2.8 GM/DL (3.2-5.2); ALKALINE PHOSPHATASE 75 U/L (45-117); ALT/SGPT 11 U/L (12-78); ANION GAP 6 MEQ/L (8-16); AST/SGOT 10 U/L (7-37); BILIRUBIN,DIRECT 0.3 MG/DL (0.0-0.2); BLOOD UREA NITROGEN 16 MG/DL (7-18); CALCIUM LEVEL 8.5 MG/DL (8.8-10.2); CARBON DIOXIDE LEVEL 31 MEQ/L (21-32); CHLORIDE LEVEL 103 MEQ/L (98-107); CPK CREATINE PHOSPHOKINASE 29 U/L (39-308); CREATININE FOR GFR 0.94 MG/DL (0.70-1.30); GLOMERULAR FILTRATION RATE > 60.0 (>35); GLUCOSE, FASTING 170 MG/DL (70-100); POTASSIUM SERUM 3.7 MEQ/L (3.5-5.1); SODIUM LEVEL 140 MEQ/L (136-145); TOTAL PROTEIN 6.8 GM/DL (6.4-8.2); TROPONIN I < 0.02 NG/ML (< 0.10)
[2018-05-22 09:16] LABS: CK-MB VALUE MASS < 1.0 NG/ML (<3.6); MB/CK RELATIVE INDEX 3.44 (< OR =4)
[2018-05-22] MEDS: hydrALAZINE INJ 20 MG/ML VIAL IV (09:48)
[2018-05-22 15:06] LABS: CK-MB VALUE MASS < 1.0 NG/ML (<3.6); CPK CREATINE PHOSPHOKINASE 32 U/L (39-308); MB/CK RELATIVE INDEX 3.12 (< OR =4); TROPONIN I < 0.02 NG/ML (< 0.10)
[2018-05-22] MEDS ORDERED: LORazepam 0.5 MG TAB PO (15:09)
== END 2018-05-22 16:16 | disposition home or self-care (01) ==
LOC: M ED 08:11
DX: I10 Essential (primary) hypertension (principal); E11.9 Type 2 diabetes mellitus without complications; E78.5 Hyperlipidemia, unspecified; N18.9 Chronic kidney disease, unspecified; Z95.1 Presence of aortocoronary bypass graft; Z87.891 Personal history of nicotine dependence; Z79.82 Long term (current) use of aspirin; Z79.899 Other long term (current) drug therapy; Z88.5 Allergy status to narcotic agent; Z88.8 Allergy status to other drugs, medicaments and biological substances
CPT/HCPCS: 71045

== ENCOUNTER → 2020-05-20 | Outpatient (REF) | payer MEDICARE, OTHER ==
[~2020-05-20] MED LIST changes: -/ESOM40CA PO; +CEPH500T PO; +CRES10TA32 PO; +DONETAB5 PO; +DUPI300I; +HYDR-3910 PO; +NEXI1CAP3 PO; +PRED10TA2 PO; -ROSU10TA PO; +TRIA0.1C60 TOP; -TRIA1CR TOP
== END ==
LOC: M LABDRWAD 13:01
DX: L30.9 Dermatitis, unspecified (principal); E07.9 Disorder of thyroid, unspecified

== ENCOUNTER → 2020-07-21 | Outpatient (CLI) | payer MEDICARE, OTHER ==
[~2020-07-21] MED LIST changes: +ASPI81CH33 PO; +ESOM1CAP5 PO; +FOLI1TAB11 PO; +LEVO112T2 PO; +LOPR1TAB6 PO; +TRIA1OI TOP
== END ==
LOC: M LABSMTC 10:04
PROVIDERS: ATTEND Anesthesiology
DX: Z01.812 Encounter for preprocedural laboratory examination (principal); Z20.828 Contact with and (suspected) exposure to other viral communicable diseases
CPT/HCPCS: C9803; U0003

== ENCOUNTER 2020-07-26 08:57 | Day surgery (SDC) | payer MEDICARE, OTHER ==
[~2020-07-26] VITALS: Ht 172.7 cm; Wt 66.2 kg
[~2020-07-26 08:57] MED LIST changes: +NS 1,000 ML IV ONE
[2020-07-26] MEDS ORDERED: propofoL 200 MG/20 ML VIAL As Ordered ONE (11:05)
[2020-07-26] MEDS ORDERED: LIDOCAINE 2% 100MG/5ML SDV (FOR ANES.) As Ordered ONE (11:05)
[2020-07-26 11:40] VITALS: BP 147/68
--- NOTE | 2020-08-03 11:31 | ROOR ---
Patient Name: Pablo Claudio Procedure Date: 07/26/2020 9:47 AM Date of : 1935 Age: 84 Room: [facility] Gender: Male Note Status: Finalized Procedure: Upper Endoscopy + Biopsies Indications: Functional Dyspepsia, Abdominal bloating, Eructation Providers: Jimbo Powell MD Referring MD: KRUPA DAWSON DO Requesting Provider: Medicines: Monitored Anesthesia Care Complications: No immediate complications. Procedure: Pre-Anesthesia Assessment: - The heart rate, respiratory rate, oxygen saturations, blood pressure, adequacy of pulmonary ventilation, and response to care were monitored throughout the procedure. The Endoscope was introduced through the mouth, and advanced to the second part of duodenum. The upper GI endoscopy was accomplished without difficulty. The patient tolerated the procedure well. Findings: The Z-line was variable and was found 40 cm from the incisors. No other significant abnormalities were identified in a careful examination of the stomach. Biopsies were taken with a cold forceps in the gastric antrum for Helicobacter pylori testing. The exam of the duodenum was otherwise normal. Impression: - Z-line variable, 40 cm from the incisors. - Biopsies were taken with a cold forceps for Helicobacter pylori testing. - The examination was otherwise normal. Recommendation: - Patient has a contact number available for emergencies. The signs and symptoms of potential delayed complications were discussed with the patient. Return to normal activities tomorrow. Written discharge instructions were provided to the patient. - High fiber diet. - Continue present medications. - Await pathology results. - Telephone GI clinic for pathology results in 1 week. - Follow an antireflux regimen. - The findings and recommendations were discussed with the patient. Jimbo Powell MD 07/26/2020 11:16:01 AM Number of Addenda: 0 Note Initiated On: 07/26/2020 9:47 AM Estimated Blood Loss: Estimated blood loss: none.
== END 2020-07-26 11:49 | disposition home or self-care (01) ==
LOC: M OPP 08:57
PROVIDERS: ATTEND Internal Medicine Gastroenterology
DX: K22.8 Other specified diseases of esophagus (principal); K30 Functional dyspepsia; R14.0 Abdominal distension (gaseous); R14.2 Eructation; K21.9 Gastro-esophageal reflux disease without esophagitis; I10 Essential (primary) hypertension; E11.9 Type 2 diabetes mellitus without complications; E03.9 Hypothyroidism, unspecified; I25.708 Atherosclerosis of coronary artery bypass graft(s), unspecified, with other forms of angina pectoris; Z79.82 Long term (current) use of aspirin; Z79.899 Other long term (current) drug therapy; Z87.891 Personal history of nicotine dependence

== ENCOUNTER 2020-08-31 16:16 | Emergency (ER) | payer MEDICARE, OTHER ==
[~2020-08-31] VITALS: Ht 172.7 cm; Wt 83.2 kg
[~2020-08-31 16:16] MED LIST changes: -NS 1,000 ML IV ONE
--- NOTE | 2020-08-31 17:58 | REPVR ---
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 Limited exam focused on the right upper extremity veins. COMPARISON: No relevant prior studies available. FINDINGS: Right deep veins: Unremarkable. Axillary and brachial veins are patent throughout without thrombus. Normal Doppler waveforms. Normal compressibility and/or augmentation response. Visualized internal jugular and subclavian veins are patent. 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 Right superficial veins: Unremarkable. Visualized cephalic and basilic veins are patent without thrombus. Soft tissues: At the right upper leg near the groin there is a loculation of fluid in the subcutaneous layer measuring 2 cm x 1 cm. IMPRESSION: There is no evidence of deep venous thrombosis. Electronically signed by: Antelmo Patel On 08/31/2020 17:58:00 PM
--- NOTE | 2020-08-31 18:06 | REPVR ---
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 Groin and med knee, R/O fluid TECHNIQUE: Imaging protocol: Right US joint or other nonvascular extremity structure or structures. Real-time ultrasound with image documentation. Limited study. Exam focused on the lower extremity in the region of clinical interest. COMPARISON: No relevant prior studies available. FINDINGS: Soft tissues: At the medial aspect of the right calf there is a loculation of fluid with lobulated margins measuring 8.2 cm in length by 3.2 cm in AP dimension by 5 cm in transverse dimension. This may represent postoperative serous fluid. Infected fluid could not be excluded and this should be closely monitored and followed. At the right groin there is an oval fluid collection measuring 3 cm by 3 cm x 1.2 cm in thickness. This may represent postoperative serous fluid. Infected fluid not excluded and this should be followed closely. IMPRESSION: Prominent areas of fluid collection in the areas of previous surgery probably serous fluid. To exclude infected fluid recommend close follow-up. Electronically signed by: Antelmo Patel On 08/31/2020 18:05:40 PM
[2020-08-31 18:26] LABS: HEMATOCRIT 29.6 % (42.0-52.0); HEMOGLOBIN 9.3 g/dl (13.5-17.5); MEAN CORPUSCULAR HEMOGLOBIN 29.7 pg (27.0-33.0); MEAN CORPUSCULAR HGB CONC 31.4 g/dl (32.0-36.5); MEAN CORPUSCULAR VOLUME 94.6 fl (80.0-96.0); PLATELET COUNT, AUTOMATED 126 10^3/uL (150-450); RED BLOOD COUNT 3.13 10^6/uL (4.30-6.10); WHITE BLOOD COUNT 3.6 10^3/uL (4.0-10.0)
[2020-08-31] MEDS ORDERED: PERCOCET 5MG/325MG TAB PO ONE (18:30)
[2020-08-31 18:48] LABS: BLOOD UREA NITROGEN 20 MG/DL (7-18); C REACTIVE PROTEIN QUANTITATIV 0.79 MG/DL (0.00-0.30); CALCIUM LEVEL 8.2 MG/DL (8.8-10.2); CARBON DIOXIDE LEVEL 33 MEQ/L (21-32); CHLORIDE LEVEL 106 MEQ/L (98-107); CREATININE FOR GFR 1.05 MG/DL (0.70-1.30); GLOMERULAR FILTRATION RATE > 60.0 (>35); GLUCOSE, FASTING 96 MG/DL (70-100); NT-PRO BNP 2197 PG/ML (<450); POTASSIUM SERUM 3.7 MEQ/L (3.5-5.1); SODIUM LEVEL 142 MEQ/L (136-145)
[2020-08-31 18:53] LABS: ERYTHROCYTE SEDIMENTATION RATE 23 mm/hr (0-20)
[2020-08-31 20:58] VITALS: BP 188/75
== END 2020-08-31 21:02 | disposition short-term general hospital (02) ==
LOC: EDBD 16:16 → M ED 16:16
DX: D61.818 Other pancytopenia (principal); T88.8XXA Other specified complications of surgical and medical care, not elsewhere classified, initial encounter; Y92.9 Unspecified place or not applicable; Y93.9 Activity, unspecified; E11.9 Type 2 diabetes mellitus without complications; I10 Essential (primary) hypertension; E78.5 Hyperlipidemia, unspecified; N18.6 End stage renal disease; E07.9 Disorder of thyroid, unspecified; Z95.1 Presence of aortocoronary bypass graft; Z87.891 Personal history of nicotine dependence; Z79.82 Long term (current) use of aspirin; Z79.899 Other long term (current) drug therapy; Z88.8 Allergy status to other drugs, medicaments and biological substances

== ENCOUNTER 2021-04-16 12:35 | Inpatient (IN) | payer MEDICARE, OTHER ==
[~2021-04-16] VITALS: Ht 165.1 cm; Wt 69.2 kg
[~2021-04-16 12:35] MED LIST changes: -BIMA01SOL; +BIMA01SOL OU; -DUPI300I; +DUPI300I SC
[2021-04-16] MEDS ORDERED: LEVO137T2 PO (13:00)
[2021-04-16] MEDS ORDERED: KLOR10TA76 PO (13:00)
[2021-04-16] MEDS ORDERED: D31000TA2 PO (13:00)
[2021-04-16] MEDS ORDERED: FAMO40TA3 PO (13:00)
[2021-04-16] MEDS ORDERED: TAMS1CAP17 PO (13:00)
[2021-04-16] MEDS ORDERED: CILO50TA PO (13:00)
[2021-04-16] MEDS ORDERED: ROSU10TA6 PO (13:00)
[2021-04-16] MEDS ORDERED: MEMA14CA (13:00)
[2021-04-16] MEDS ORDERED: SERT25TA21 PO (13:00)
[2021-04-16] MEDS ORDERED: ALPR0.25 PO (13:00)
[2021-04-16 13:23] LABS: BASO % 0.7 % (0.0-1.0); EOS # 0.1 10^3/uL (0.0-0.5); EOS % 1.2 % (0.0-3.0); HEMATOCRIT 40.6 % (42.0-52.0); HEMOGLOBIN 12.9 g/dl (13.5-17.5); LYMPH # 0.6 10^3/uL (1.5-5.0); LYMPH % 9.8 % (24.0-44.0); MEAN CORPUSCULAR HEMOGLOBIN 30.8 pg (27.0-33.0); MEAN CORPUSCULAR HGB CONC 31.8 g/dl (32.0-36.5); MEAN CORPUSCULAR VOLUME 96.9 fl (80.0-96.0); MONO # 0.7 10^3/uL (0.0-0.8); MONO % 12.2 % (2.0-8.0); NEUTROPHILS # 4.3 10^3/uL (1.5-8.5); NEUTROPHILS % 75.7 % (36.0-66.0); PLATELET COUNT, AUTOMATED 110 10^3/uL (150-450); RED BLOOD COUNT 4.19 10^6/uL (4.30-6.10); WHITE BLOOD COUNT 5.6 10^3/uL (4.0-10.0)
--- NOTE | 2021-04-16 13:29 | REP ---
INDICATION: CHEST PAIN. COMPARISON: Comparison chest x-ray May 22, 2018. TECHNIQUE: Portable upright AP chest radiograph. FINDINGS: Patient is status post prior median sternotomy. Monitoring electrodes are seen. The heart is not enlarged. The aorta is calcific and tortuous unchanged. Pulmonary vasculature is slightly cephalized but unchanged. Right hemidiaphragm is elevated unchanged. There is a skin fold parallel to the right chest. There is no evidence of pneumothorax or hydrothorax. No infiltrate is seen. No acute bony abnormality.. IMPRESSION: No active disease. <Electronically signed by Fan Contreras > 04/16/21 [id number]
[2021-04-16] MEDS ORDERED: NS 500 ML IV ONE (13:40)
[2021-04-16 13:57] LABS: ALBUMIN 3.5 GM/DL (3.2-5.2); ALT/SGPT 15 U/L (12-78); BILIRUBIN,DIRECT 0.3 MG/DL (0.0-0.2); BILIRUBIN,TOTAL 1.2 MG/DL (0.2-1.0); BLOOD UREA NITROGEN 18 MG/DL (7-18); CALCIUM LEVEL 8.8 MG/DL (8.8-10.2); CARBON DIOXIDE LEVEL 32 MEQ/L (21-32); CHLORIDE LEVEL 107 MEQ/L (98-107); CK-MB VALUE MASS < 1.0 NG/ML (<3.6); CPK CREATINE PHOSPHOKINASE 52 U/L (39-308); CREATININE FOR GFR 1.23 MG/DL (0.70-1.30); GLOMERULAR FILTRATION RATE 59.5 (>35); GLUCOSE, FASTING 108 MG/DL (70-100); MB/CK RELATIVE INDEX 1.92 (< OR =4); NT-PRO BNP 843 PG/ML (<450); SODIUM LEVEL 142 MEQ/L (136-145); THYROID STIMULATING HORMONE 0.405 uIU/ML (0.358-3.740); TOTAL PROTEIN 6.4 GM/DL (6.4-8.2); TROPONIN I < 0.02 NG/ML (< 0.10)
[2021-04-16 14:07] LABS: INR 1.03; PROTHROMBIN TIME 13.7 SECONDS (12.5-14.3)
[2021-04-16] MEDS ORDERED: hydrALAZINE 20MG/ML 1ML VIAL (J0360 PER 20MG) IV STA (14:07)
[2021-04-16 14:08] LABS: PARTIAL THROMBOPLASTIN TIME 30.3 SECONDS (24.2-38.5)
[2021-04-16] MEDS ORDERED: hydrALAZINE 20MG/ML 1ML VIAL (J0360 PER 20MG) IV ONE (15:55)
--- NOTE | 2021-04-16 15:57 | REP ---
INDICATION: dizziness. COMPARISON: Comparison head CT study May 22, 2018.. TECHNIQUE: Helical scanning is acquired. 5 mm axial images were reformatted. Coronal MPR images were generated. FINDINGS: Preliminary digital roller painter radiograph is unremarkable. On bone window settings, there is heavy vascular calcification at the skull base in the vertebral and carotid arteries bilaterally. No bony destructive lesion is seen. On soft tissue window settings, there is moderate generalized volume loss. Mild periventricular white matter low-density is seen consistent with small vessel changes. There is a physiologic calcification of the basal ganglia bilaterally. There is no evidence of intracranial hemorrhage, infarct, mass, extra-axial fluid collection, or midline shift. Findings are unchanged from May 22, 2018. IMPRESSION: Vascular calcification moderate generalized volume loss and small vessel changes. No acute intracranial abnormality.. <Electronically signed by Fan Contreras > 04/16/21 [id number]
[2021-04-16] MEDS ORDERED: FUROSEMIDE 20 MG TAB PO ONE (17:35)
[2021-04-16] MEDS ORDERED: DONE10TA90 PO (18:30)
--- NOTE | 2021-04-16 19:28 | HPE ---
HISTORY AND PHYSICAL DATE OF ADMISSION: 04/16/2021 PRIMARY CARE PROVIDER: Jaguar Bloom D.O. CHIEF COMPLAINT: Hypertensive emergency with hypertensive encephalopathy. HISTORY OF PRESENT ILLNESS: Pablo Claudio is an 85-year-old patient of Dr. Marky Bloom. He also sees Dr. Castillo for cardiology and Dr. Esposito for vascular surgery. He has a history of hypertension. He was having some bradycardia and in June 2020, his metoprolol dose was reduced from 50 to 25 mg. Apparently the bradycardia persisted and in October the metoprolol was discontinued. Today his noticed that he was more confused than usual (baseline dementia also present) and he was having a headache. He was brought to the emergency room and systolic blood pressure was over 200. He has clonus on exam and he is being admitted for hypertensive encephalopathy. PAST MEDICAL HISTORY: 1. Peripheral arterial disease and underwent a right femoral endarterectomy, right fem-pop bypass 07/2020. 2. Acute urinary retention and was discharged on tamsulosin for this. 3. Acute blood loss anemia and was transfused at that time. 4. Alcohol abuse, but quit drinking heavily in the . 5. Chronic anxiety. 6. Aortic stenosis, which is moderate; I do not have hard data as far as his gradient or aortic valve area. 7. Asthma. 8. Carotid artery stenosis. 9. Adenomatous colon polyp in 2015. 10. COPD. 11. Coronary artery disease status post coronary artery bypass grafting x5 in 09/2015. 12. Dementia. 13. Type 2 diabetes for which he is not currently on medication. 14. Diverticulosis with an episode of diverticulitis. 15. GERD with upper endoscopy in 2019 that had no significant findings on biopsy. 16. Hyperlipidemia. 17. Hypothyroidism. 18. Dementia. 19. Stroke 06/2012 and has left-sided weakness and some slight residual weakness, but mostly loss of short term memory. He sundowns a lot. His is quite concerned about his current sundowning. Apparently has some nocturnal hallucinations as well. PAST SURGICAL HISTORY: 1. CABG x5 in 09/2015. 2. Left carotid endarterectomy. 3. Cataract extractions. 4. Bilateral knee arthroscopy. 5. Vascular surgery right knee as summarized above. 6. Fem-pop bypass. 7. Right femoral endarterectomy. HOME MEDICATIONS: 1. Alprazolam 0.25 mg q. h.s. 2. Aspirin 81 mg daily. 3. Vitamin D 1000 units daily. 4. Famotidine 40 mg q. h.s. 5. Folic acid 1 mg daily. 6. Levothyroxine 135 mcg six days a week. 7. Potassium chloride 10 mEq daily. 8. Rosuvastatin 10 mg daily. 9. Sertraline 25 mg daily. 10. Tamsulosin 0.4 mg daily. 11. Aricept 20 mg daily. 12. Dupixent 300 mg subcutaneously every two weeks. 13. Namenda ER 14 mg daily. 14. Pletal 50 mg b.i.d. 15. Lumigan eye drops. ALLERGIES: CEPHALEXIN, PLAVIX, METFORMIN, METHOTREXATE, ISOTHIAZOLINONES. SOCIAL HISTORY: He is . He does not currently smoke. Quit drinking many years ago. FAMILY HISTORY: Sister with diabetes, coronary disease, and ovarian cancer. REVIEW OF SYSTEMS: Difficult to obtain, he is agitated. He denies chest pain. He says he has a headache. Denies neck stiffness. No visual loss or disturbance. No focal weakness in the arms or legs. No back pain or chest pain. PHYSICAL EXAMINATION: VITAL SIGNS: Per ER flow sheet. Blood pressure currently 210/85, pulse in the 60s. GENERAL APPEARANCE: He is agitated. He is upset about the cold air blowing into his room and it is hard to dissuade him from focusing on that. HEENT: Pupils equal and reactive to light. Oropharynx benign. No facial droop or weakness. Left carotid endarterectomy scar. NECK: Supple. HEART: Regular rate and rhythm. 2/6 systolic ejection murmur. LUNGS: Clear. ABDOMEN: Soft and nontender. No masses. Liver and spleen not enlarged. EXTREMITIES: No clubbing, cyanosis, or edema. Decreased pulses of both feet, but palpable and equal bilaterally. He has clonus in the lower extremities and hyperreflexia bilaterally. Moves arms and legs with equal strength. I did not test his gait. NEUROLOGIC: He has no cranial nerve abnormalities. LABORATORY DATA: Sodium 142, potassium 4, BUN 18, creatinine 1.23, bilirubin 1.2. Liver functions normal. BNP is 843. TSH 0.45. White count 5.6, hemoglobin 12.9, platelets 110,000. IMAGING DATA: Chest x-ray with no active disease. CT of the brain shows no acute intracranial abnormality. EKGs were reviewed and they both showed sinus rhythm with LVH. IMPRESSION/PLAN: 1. Hypertensive emergency. He is being admitted to the intensive care unit (ICU) treated with hydralazine and intravenous Cardene. His goal systolic blood pressure is down to 160 to 180 overnight and then 140 to 160 tomorrow. Avoid rapid correction of blood pressure. He has peripheral arterial, coronary artery and cerebrovascular disease, and relative hypotension could lead to ischemia. I have ordered a renal Doppler ultrasound for coronary artery stenosis, an echocardiogram to assess his degree of aortic stenosis, and serial labs have been ordered. 2. Dementia with behavioral disturbance. is quite concerned about his sundowning. We will order a sitter. She is asking for liberal use of medication to control his behavior. She is quite worried this could get out of hand overnight. I have ordered some Ativan. I think if we can control the agitation he is exhibiting in the emergency room it would help with his blood pressure. Continue his Aricept and Namenda. 3. Hyperlipidemia. Continue his current dose of rosuvastatin. 4. Peripheral arterial disease. Continue aspirin and Pletal. 5. History of BPH and risk of acute urinary retention. Will continue his tamsulosin. Get out of bed as early as possible. Frequent bladder scanning to assess to urinary retention advised. 6. History of asthma. Will continue inhalers. Dupixent is an outpatient treatment that will not be continued here. 7. Hypothyroidism. Continue current dose of levothyroxine, which he only takes six days a week. 8. History of depression. Continue sertraline 25 mg daily to avoid SSRI withdrawal symptoms.
[2021-04-16 20:00] VITALS: BP 172/76
[2021-04-16] MEDS ORDERED: DONEPEZIL 5 MG TAB PO SCH (21:00)
[2021-04-16] MEDS: SERTRALINE HCL 25 MG TABLET PO SCH (21:01)
[2021-04-16] MEDS: FAMOTIDINE 20 MG TAB PO SCH (21:02)
[2021-04-16] MEDS: CILOSTAZOL 100 MG TAB (PLETAL) PO SCH (21:02)
[2021-04-16] MEDS: ENOXAPARIN 30MG/0.3ML SYRINGE (J1650 PER 10MG) SC SCH (21:02)
[2021-04-16] MEDS: niCARdipine IV 40 MG in IV 1 EA IV SCH (21:27)
[2021-04-16 22:00] VITALS: BP 177/84
[2021-04-16] MEDS: MEMANTINE 5MG TABLET (NAMENDA) PO SCH (22:17)
[2021-04-16 23:00] VITALS: BP 151/88
[2021-04-17] VITALS (14 sets, daily range): BP systolic 101–193; BP diastolic 54–92
[2021-04-17 01:44] LABS: CK-MB VALUE MASS < 1.0 NG/ML (<3.6); CPK CREATINE PHOSPHOKINASE 52 U/L (39-308); MB/CK RELATIVE INDEX 1.92 (< OR =4); TROPONIN I < 0.02 NG/ML (< 0.10)
[2021-04-17] MEDS: niCARdipine IV 40 MG in IV 1 EA IV SCH (02:55)
[2021-04-17] MEDS: CILOSTAZOL 100 MG TAB (PLETAL) PO SCH ×2 (06:40→17:20)
--- NOTE | 2021-04-17 07:45 | ECGEPIP ---
[facility] - ED Test Date: 2021-04-16 Pat Name: CLARITA KELLY Department: Room: [place] [address] Gender: Male Complaint Adjuster: sheila : 1935 Requested By: Rell Mantilla Order Number: [id number] Reading MD: Roque Greer Measurements Intervals [place] Rate: 69 P: 44 MS: 190 QRS: -34 QRSD: 92 T: 63 QT: 404 QTc: 432 Interpretive Statements Normal sinus rhythm Left axis deviation Moderate voltage criteria for LVH, may be normal variant ( R in aVL , [place] product ) Inferior infarct , age undetermined SIMILAR TO 05/22/18 Electronically Signed on 04-17-2021 7:45:40 EDT by Roque Greer
--- NOTE | 2021-04-17 07:46 | ECGEPIP ---
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
[2021-04-17] MEDS ORDERED: hydrALAZINE 20MG/ML 1ML VIAL (J0360 PER 20MG) IV PRN (07:55)
[2021-04-17] MEDS: MEMANTINE 5MG TABLET (NAMENDA) PO SCH ×2 (09:10→20:38)
[2021-04-17] MEDS: TAMSULOSIN 0.4 MG CAP PO SCH (09:10)
[2021-04-17] MEDS: FOLIC ACID 1 MG TAB PO SCH (09:10)
[2021-04-17] MEDS: ASPIRIN 81 MG CHEW TABLET PO SCH (09:10)
[2021-04-17] MEDS: LEVOTHYROXINE 137MCG TABLET (0.137MG) PO SCH (09:10)
[2021-04-17] MEDS: ROSUVASTATIN 10 MG TAB (CRESTOR) PO SCH (09:11)
[2021-04-17] MEDS: POTASSIUM CHLORIDE 10 MEQ SR TABLET PO SCH (09:11)
[2021-04-17 09:28] LABS: HEMATOCRIT 40.2 % (42.0-52.0); HEMOGLOBIN 12.8 g/dl (13.5-17.5); MEAN CORPUSCULAR HEMOGLOBIN 30.7 pg (27.0-33.0); MEAN CORPUSCULAR HGB CONC 31.8 g/dl (32.0-36.5); MEAN CORPUSCULAR VOLUME 96.4 fl (80.0-96.0); PLATELET COUNT, AUTOMATED 104 10^3/uL (150-450); RED BLOOD COUNT 4.17 10^6/uL (4.30-6.10); WHITE BLOOD COUNT 5.6 10^3/uL (4.0-10.0)
[2021-04-17 09:50] LABS: CK-MB VALUE MASS < 1.0 NG/ML (<3.6); CPK CREATINE PHOSPHOKINASE 69 U/L (39-308); MB/CK RELATIVE INDEX 1.45 (< OR =4); TROPONIN I < 0.02 NG/ML (< 0.10)
[2021-04-17 09:54] LABS: CALCIUM LEVEL 8.9 MG/DL (8.8-10.2); CREATININE FOR GFR 1.24 MG/DL (0.70-1.30); POTASSIUM SERUM 3.3 MEQ/L (3.5-5.1)
[2021-04-17] MEDS ORDERED: POTASSIUM CHLORIDE 10 MEQ SR TABLET PO ONE (10:30)
[2021-04-17] MEDS ORDERED: DONEPEZIL 5 MG TAB PO ONE (11:00)
[2021-04-17] MEDS: amLODIPine 5 MG TAB PO SCH (11:30)
[2021-04-17] MEDS: LORazepam 0.5 MG TAB PO PRN ×2 (12:37→22:46)
--- NOTE | 2021-04-17 12:52 | IPNPDOC ---
Date Seen The patient was seen on 04/17/21. Progress Note SUBJECTIVE: BP improved overnight with ACEi and hydralazine, never started cardizem gtt. This AM started on amlodipine 5 mg PO QDaily. Confirmed with pharmacy that patient was taken off antihypertensive med (metoprolol) 11/2020 by PCP and is not currently on anything for high BP. Today became very anxious, BP incr 190 and he complained of incr SOB. Encouraging ativan to be given now, repeating BP. Patient, prior to this event this AM, had no acute complaints and remains AAOx2. . OBJECTIVE: PHYSICAL EXAMINATION: VITAL SIGNS: Please see below GENERAL APPEARANCE: AAOx 2 (not oriented to reason as to why he was here), NAD resting in bed HEENT: Pupils equal and reactive to light. Oropharynx benign. No facial droop or weakness. Left carotid endarterectomy scar. NECK: Supple. HEART: Regular rate and rhythm. 2/6 systolic ejection murmur. No lower ext edema LUNGS: CTAB, no W/R/R ABDOMEN: Soft and nontender. No masses. Liver and spleen not enlarged. EXTREMITIES: No clubbing, cyanosis NEUROLOGIC: He has no cranial nerve abnormalities, no focal deficits LABORATORY DATA: Please see below MICRO: Resp panel: neg IMAGING DATA: Chest x-ray: No active disease. CT of the brain: No acute intracranial abnormality. EKGs- and they both showed sinus rhythm with LVH. IMPRESSION/PLAN: Hypertensive emergency possibly 2/2 to increased anxiety/anxiety attacks with underlying dementia with behavioral disturbances, r/o other causes mentioned below -BP as high as systolic 190's today with increased anxiety prior -S/p hydralazine, started amlodipine low dose daily (room to increase if neede) -Ativan PRN, hydralazine PRN -F/u echocardiogram, renal US (won't get done until 04/18/21) -Daily labs -Tx for dementia below Dementia with behavioral disturbance / hx of depression/anxiety -Currently at times paranoid about (thinks she is cheating), anxious which can increase his blood pressure -Consider psych consult to help with behaviors (anxiety, paranoia at times) if this is thought to not be controlled within the next 24 hours and further contributing to incr BP -Rescheduled home meds to what he takes at home -Although not ideal, ativan PRN -C/w aricept, namenda, sertraline. Consider seroquel Hyperlipidemia -Statin Peripheral arterial disease -Statin, aspirin and Pletal History of BPH and risk of acute urinary retention -C/w tamsulosin History of asthma -Stable on RA -Will continue inhalers. Dupixent cannot be restarted here Hypothyroidism. -levothyroxine GERD -Famotidine DVT px -Enoxaparin DISPOSITION: Switched to PCU status. Renal US could not be done until 04/18 in the AM, monitoring BP closely and can increased BP meds if needed. Plan is undecided for discharge at this time, VS, I&O, 24H, Fishbone Vital Signs/I&O Vital Signs Date Time Temp Pulse Resp B/P (MAP) Pulse Ox O2 Delivery O2 Flow Rate FiO2 04/17/21 12:15 193/92 04/17/21 11:30 84 04/17/21 09:33 18 97 Room Air 04/17/21 08:00 97.6 I&O- Last 24 Hours up to 6 AM 04/17/21 06:00 Intake Total 680 ml Output Total 550 ml Balance 130 ml Laboratory Data 24H LABS Laboratory Tests 2 04/16/21 13:08: Immature Granulocyte % (Auto) 0.4, Neutrophils (%) (Auto) 75.7H, Lymphocytes (%) (Auto) 9.8L, Monocytes (%) (Auto) 12.2H, Eosinophils (%) (Auto) 1.2, Basophils (%) (Auto) 0.7, Neutrophils # (Auto) 4.3, Lymphocytes # (Auto) 0.6L, Monocytes # (Auto) 0.7, Eosinophils # (Auto) 0.1, Basophils # (Auto) 0.0, Nucleated Red Blood Cells % (auto) 0.0, Prothrombin Time 13.7, Prothromb Time International Ratio 1.03, Activated Partial Thromboplast Time 30.3, Anion Gap 3L, Glomerular Filtration Rate 59.5, Calcium Level 8.8, Total Bilirubin 1.2H, Direct Bilirubin 0.3H, Aspartate Amino Transf (AST/SGOT) 13, Alanine Aminotransferase (ALT/SGPT) 15, Alkaline Phosphatase 89, Total Creatine Kinase 52, Creatine Kinase MB < 1.0, Creatine Kinase MB Relative Index 1.92, Troponin I < 0.02, [id number]-Type Natriuretic Peptide 843H, Total Protein 6.4, Albumin 3.5, Albumin/Globulin Ratio 1.2, Thyroid Stimulating Hormone (TSH) 0.405 04/16/21 14:09: Urine Color YELLOW, Urine Appearance CLEAR, Urine pH 7.0, Urine Specific [place] 1.012, Urine Protein NEGATIVE, Urine Glucose (UA) NEGATIVE, Urine Ketones NEGATIVE, Urine Blood NEGATIVE, Urine Nitrite NEGATIVE, Urine Bilirubin NEGATIV E, Urine Urobilinogen 0.2, Urine Leukocyte Esterase NEGATIVE, Urine WBC (Auto) 0, Urine RBC (Auto) 1, Urine Hyaline Casts (Auto) 0, Urine Bacteria (Auto) NEGATIVE, Urine Squamous Epithelial Cells 0, Urine Sperm (Auto) 04/17/21 00:55: Total Creatine Kinase 52, Creatine Kinase MB < 1.0, Creatine Kinase MB Relative Index 1.92, Troponin I < 0.02 04/17/21 09:06: Nucleated Red Blood Cells % (auto) 0.0, Anion Gap 3L, Glomerular Filtration Rate 59.0, Calcium Level 8.9, Total Creatine Kinase 69, Creatine Kinase MB < 1.0, Creatine Kinase MB Relative Index 1.45, Troponin I < 0.02 CBC/BMP Laboratory Tests 04/16/21 13:08 04/17/21 09:06 Microbiology Microbiology 04/16/21 Respiratory Virus Panel (PCR) ([facility]) - Final, Complete Asha Cast MD April 17, 2021 12:52
--- NOTE | 2021-04-17 15:08 | ECHO ---
DATE OF PROCEDURE: 04/16/2021 Age: 85 Gender: Male Height: 168 cm Weight: 68 kg REFERRING PHYSICIAN: Dr. Rian Ornelas. INDICATION: Cardiac murmur, unspecified. MEASUREMENTS: 2D Measurements: Interventricular septum 1.76 cm Posterior wall 1.17 cm Left ventricle diastole 3.3 cm Aortic root 3.5 cm Left atrium 4.5 cm Aortic annulus 2.0 cm Proximal ascending aorta 3.1 cm Doppler Measurements: No aortic stenosis No aortic regurgitation Aortic valve velocity 208 cm/s LVOT velocity 81.6 cm/s No mitral regurgitation No mitral stenosis Mitral E velocity 64.3 cm/s Mitral A velocity 111 cm/s Mitral deceleration time 288 msec Trace tricuspid regurgitation No pulmonic regurgitation Pulmonary artery acceleration time 108 msec MITRAL ANNULAR TISSUE DOPPLER E prime septal 4.6 cm/s, E prime lateral 9.0 cm/s DESCRIPTION: Rhythm was sinus with some PVCs. Image quality was fair. Subcostal acoustic window was poor and not obtainable for adequate imaging. Suprasternal notch images were not acquired. No pericardial effusion. CONCLUSIONS: 1. Severe focal thickening and focal calcific deposits of a 3-cusp aortic valve. Mild reduction in aortic cusp mobility. No aortic stenosis or aortic regurgitation. 2. Severe mitral annular calcification. No mitral stenosis or regurgitation. 3. Moderate focal thickening of the basal anterior fascicular septum. No dynamic intracavitary or LVOT obstruction. Normal regional LV wall motion and wall thickening. Normal LV systolic function. LVEF 65% by visual estimate. Grade 1 LV diastolic dysfunction (impaired relaxation filling pattern). 4. Otherwise normal appearing echocardiogram Doppler findings. MTDD
[2021-04-17 17:30] LABS: CPK CREATINE PHOSPHOKINASE 75 U/L (39-308); MB/CK RELATIVE INDEX 1.33 (< OR =4); TROPONIN I < 0.02 NG/ML (< 0.10)
[2021-04-17] MEDS: ENOXAPARIN 30MG/0.3ML SYRINGE (J1650 PER 10MG) SC SCH (20:38)
[2021-04-17] MEDS: FAMOTIDINE 20 MG TAB PO SCH (20:38)
[2021-04-17] MEDS: SERTRALINE HCL 25 MG TABLET PO SCH (20:38)
[2021-04-17] MEDS: ALPRAZolam 0.25 MG TAB PO PRN (20:38)
[2021-04-18] VITALS: BP 140/70
[2021-04-18] MEDS: RAMELTEON 8 MG TAB (ROZEREM) PO PRN (00:05)
[2021-04-18] MEDS: ACETAMINOPHEN 500 MG TAB PO PRN ×2 (00:06→20:12)
[2021-04-18] MEDS: LORazepam 0.5 MG TAB PO PRN (00:07)
[2021-04-18 04:00] VITALS: BP 105/62
[2021-04-18 05:17] LABS: HEMATOCRIT 35.9 % (42.0-52.0); HEMOGLOBIN 11.3 g/dl (13.5-17.5); MEAN CORPUSCULAR HEMOGLOBIN 30.1 pg (27.0-33.0); MEAN CORPUSCULAR HGB CONC 31.5 g/dl (32.0-36.5); MEAN CORPUSCULAR VOLUME 95.7 fl (80.0-96.0); PLATELET COUNT, AUTOMATED 112 10^3/uL (150-450); RED BLOOD COUNT 3.75 10^6/uL (4.30-6.10); WHITE BLOOD COUNT 5.1 10^3/uL (4.0-10.0)
[2021-04-18 05:37] LABS: CALCIUM LEVEL 8.3 MG/DL (8.8-10.2); CREATININE FOR GFR 1.74 MG/DL (0.70-1.30); GLOMERULAR FILTRATION RATE 39.9 (>35); POTASSIUM SERUM 3.8 MEQ/L (3.5-5.1)
[2021-04-18 07:29] VITALS: BP 134/68
[2021-04-18] MEDS: LEVOTHYROXINE 137MCG TABLET (0.137MG) PO SCH (08:33)
[2021-04-18] MEDS: ROSUVASTATIN 10 MG TAB (CRESTOR) PO SCH (08:33)
[2021-04-18] MEDS: CILOSTAZOL 100 MG TAB (PLETAL) PO SCH ×2 (08:33→17:34)
[2021-04-18] MEDS: ASPIRIN 81 MG CHEW TABLET PO SCH (08:33)
[2021-04-18] MEDS: DONEPEZIL 5 MG TAB PO SCH (08:33)
[2021-04-18] MEDS: MEMANTINE 5MG TABLET (NAMENDA) PO SCH ×2 (08:33→20:11)
[2021-04-18] MEDS: FOLIC ACID 1 MG TAB PO SCH (08:34)
[2021-04-18] MEDS: TAMSULOSIN 0.4 MG CAP PO SCH (08:34)
[2021-04-18] MEDS: amLODIPine 5 MG TAB PO SCH (08:34)
[2021-04-18] MEDS: POTASSIUM CHLORIDE 10 MEQ SR TABLET PO SCH (08:34)
--- NOTE | 2021-04-18 09:57 | REP ---
INDICATION: Hypertension. R/O Renal Artery Stenosis COMPARISON: None TECHNIQUE: Real time cruz scale ultrasound examination using curved array transducer followed by color Doppler evaluation of the renal vasculature. FINDINGS: Right kidney measures 9.1 x 6.2 x 4.7 cm and includes 2.4 x 2.9 x 3.1 cm cortical exophytic midpole cyst. No hydronephrosis, nephrolithiasis, or renal mass lesion. Left kidney measures 8.8 x 5.4 x 4.5 cm without hydronephrosis, nephrolithiasis, cystic or renal mass lesion. Bladder is under distended. Color Doppler evaluation is incomplete due to interposed bowel gas obscuring the renal arteries. RIGHT KIDNEY Intrarenal resistive indices: 0.75-0.77 Intrarenal acceleration times: 0.039-0.042 LEFT KIDNEY Intrarenal resistive indices: 0.75-0.81 Intrarenal acceleration times: 0.042-0.050 IMPRESSION: 1. Somewhat atrophic appearance to the kidneys with 3.1 cm right renal cyst. 2. Doppler evaluation is incomplete due to interposed bowel gas. However, increased resistive indices are consistent with chronic medical renal disease and small vessel renovascular disease. <Electronically signed by Jameson Mayberry > 04/18/21 [id number]
--- NOTE | 2021-04-18 09:57 | IPN ---
PROGRESS NOTE DATE: 04/18/2021 SUBJECTIVE: Pablo is seen in the PCU. I admitted him a few days ago with hypertensive encephalopathy. Blood pressure has come under better control. I think a lot of the hypertension was being driven by his agitation. He has dementia with behavioral disturbance and that is going to become a significant issue with disposition. His son, Pablo Baca, was in the room with him today; Pablo Baca is my patient and I know him well, and we had a good conversation. The family does plan on the patient going home and I am not sure how practical that is. There are no symptoms of chest pain or shortness of breath. His blood pressure has been under good control. OBJECTIVE: VITAL SIGNS: Blood pressure 134/68. Vital signs stable. GENERAL APPEARANCE: He is alert and conversant. He is agitated and angry about noise out in the hallway. HEENT: Unremarkable. LUNGS: Clear. HEART: Regular rhythm with 2/6 systolic ejection murmur. ABDOMEN: Soft and nontender with no masses. EXTREMITIES: No peripheral edema. LABORATORY DATA: CBC unremarkable. CMP shows that his creatinine is up to 1.7. IMAGING DATA: Renal ultrasound is pending. IMPRESSION AND PLAN: 1. Hypertensive emergency. Blood pressure is well-controlled on current regimen, which he will continue. 2. Echocardiogram showed some valvular heart disease, but no acute findings. 3. Acute kidney injury. Renal function is elevated. Adjust medications based upon renal function. This could be due to the hypertensive episode. Recheck creatinine in the morning and if it continues to climb, consider nephrology consult. A renal ultrasound is pending. 4. Dementia with behavioral disturbance. Currently on Namenda, Aricept, and sertraline. I am stopping his intravenous (IV) Ativan and starting scheduled Seroquel in an attempt to have him calm enough that he can go home at some point. 5. BPH. Continue his tamsulosin. 6. Peripheral arterial disease. Continue statin therapy, aspirin, and Pletal. 7. Hypothyroidism. TSH normal on current dose of levothyroxine.
[2021-04-18] MEDS: QUEtiapine FUMARATE 25 MG TAB PO SCH ×2 (11:18→20:11)
[2021-04-18 12:35] VITALS: BP 176/90
[2021-04-18] MEDS ORDERED: ONDANSETRON 4MG/2ML VIAL IV PRN (12:40)
[2021-04-18 14:00] VITALS: BP 129/61; O2SAT 94
[2021-04-18] MEDS: SERTRALINE HCL 25 MG TABLET PO SCH (20:11)
[2021-04-18] MEDS: FAMOTIDINE 20 MG TAB PO SCH (20:11)
[2021-04-18] MEDS: ENOXAPARIN 30MG/0.3ML SYRINGE (J1650 PER 10MG) SC SCH (20:12)
[2021-04-18 22:00] VITALS: BP 101/49
[2021-04-19 02:20] VITALS: O2SAT 96
[2021-04-19 06:00] VITALS: BP 114/58
[2021-04-19 06:26] LABS: HEMATOCRIT 37.4 % (42.0-52.0); HEMOGLOBIN 11.8 g/dl (13.5-17.5); MEAN CORPUSCULAR HEMOGLOBIN 30.9 pg (27.0-33.0); MEAN CORPUSCULAR HGB CONC 31.6 g/dl (32.0-36.5); MEAN CORPUSCULAR VOLUME 97.9 fl (80.0-96.0); PLATELET COUNT, AUTOMATED 104 10^3/uL (150-450); RED BLOOD COUNT 3.82 10^6/uL (4.30-6.10); WHITE BLOOD COUNT 5.9 10^3/uL (4.0-10.0)
[2021-04-19 06:50] LABS: CALCIUM LEVEL 9.1 MG/DL (8.8-10.2); CREATININE FOR GFR 2.5 MG/DL (0.70-1.30); GLOMERULAR FILTRATION RATE 26.3 (>35); POTASSIUM SERUM 4.3 MEQ/L (3.5-5.1)
[2021-04-19] MEDS: TAMSULOSIN 0.4 MG CAP PO SCH (08:58)
[2021-04-19] MEDS: QUEtiapine FUMARATE 25 MG TAB PO SCH ×2 (08:58→19:46)
[2021-04-19] MEDS: ASPIRIN 81 MG CHEW TABLET PO SCH (08:59)
[2021-04-19] MEDS: CILOSTAZOL 100 MG TAB (PLETAL) PO SCH ×2 (08:59→17:48)
[2021-04-19] MEDS: DONEPEZIL 5 MG TAB PO SCH (09:02)
[2021-04-19] MEDS: ROSUVASTATIN 10 MG TAB (CRESTOR) PO SCH (09:02)
[2021-04-19] MEDS: POTASSIUM CHLORIDE 10 MEQ SR TABLET PO SCH (09:02)
[2021-04-19] MEDS: amLODIPine 5 MG TAB PO SCH (09:02)
[2021-04-19] MEDS: FOLIC ACID 1 MG TAB PO SCH (09:02)
[2021-04-19] MEDS: MEMANTINE 5MG TABLET (NAMENDA) PO SCH ×2 (09:02→19:47)
[2021-04-19] MEDS: LEVOTHYROXINE 137MCG TABLET (0.137MG) PO SCH (09:04)
[2021-04-19] MEDS ORDERED: PILL CUTTER 1 EACH XX PRN (09:50)
[2021-04-19 14:04] VITALS: BP 99/46
[2021-04-19] MEDS: NS 0.45% 1,000 ML IV SCH (15:22)
--- NOTE | 2021-04-19 18:02 | IPNPDOC ---
Text Note Date of Service The patient was seen on 04/19/21. NOTE Hospitalist Progress Note Subjective: Patient is awake and alert, but he is not oriented. He really does not answer any questions appropriately. We did speak with his today, she is aware of the many difficulties surrounding his care at this time, and she will be working with PFS toward a safe discharge plan. Objective: General: Not in any acute distress. HEENT: Head normocephalic, atraumatic, sclera are nonicteric. Hearing is grossly intact to conversation. Respiratory: Clear to auscultation bilaterally with no wheezes, rales, or rhonchi. Cardiovascular: Regular rate and rhythm, with no rubs, gallops, or murmur. Abdomen: Soft, nontender, nondistended, no hepatosplenomegaly appreciated. Bowel sounds present. I could not appreciate a distended bladder on palpation Extremities: 2+ pulses in the radial and dorsalis pedis bilaterally. No evidence of clubbing or cyanosis. Assessment: Acute oliguric renal failure Hypertensive emergency, now resolved Echocardiogram showing valvular disease, but no acute findings Dementia Benign prostatic hypertrophy Peripheral artery disease Hypothyroidism Plan: His blood pressures are now well controlled, but it appears that in the past 24 hours he has not had any urine output, and his renal function continues to get worse. Nephrology has been consulted for evaluation regarding acute oliguric renal failure, their input into the matter is greatly appreciated. Otherwise, [facility] is well aware of his case, and we'll continue working towards a safe and acceptable discharge situation. VS,Fishbone, I+O VS, Fishbone, I+O Laboratory Tests 04/19/21 06:06 Vital Signs Date Time Temp Pulse Resp B/P (MAP) Pulse Ox O2 Delivery O2 Flow Rate FiO2 04/19/21 14:04 97.7 93 16 99/46 (63) 95 Room Air I&O- Last 24 Hours up to 6 AM 04/19/21 05:59 Intake Total 1250 ml Output Total 0 ml Balance 1250 ml MELISSA GREENBERG DO April 19, 2021 18:02
[2021-04-19] MEDS: ALPRAZolam 0.25 MG TAB PO PRN (19:46)
[2021-04-19] MEDS: RAMELTEON 8 MG TAB (ROZEREM) PO PRN (19:46)
[2021-04-19] MEDS: SERTRALINE HCL 25 MG TABLET PO SCH (19:46)
[2021-04-19] MEDS: ACETAMINOPHEN 500 MG TAB PO PRN (19:47)
[2021-04-19] MEDS: FAMOTIDINE 20 MG TAB PO SCH (19:47)
[2021-04-19] MEDS: ENOXAPARIN 30MG/0.3ML SYRINGE (J1650 PER 10MG) SC SCH (19:48)
[2021-04-19 22:00] VITALS: BP 114/70
[2021-04-19 23:19] VITALS: O2SAT 97
[2021-04-20] MEDS: NS 0.45% 1,000 ML IV SCH ×2 (02:39→14:52)
[2021-04-20] MEDS: ACETAMINOPHEN 500 MG TAB PO PRN (05:08)
[2021-04-20 06:00] VITALS: BP 153/79
[2021-04-20 06:59] LABS: HEMATOCRIT 33.8 % (42.0-52.0); HEMOGLOBIN 10.7 g/dl (13.5-17.5); MEAN CORPUSCULAR HEMOGLOBIN 30.7 pg (27.0-33.0); MEAN CORPUSCULAR HGB CONC 31.7 g/dl (32.0-36.5); MEAN CORPUSCULAR VOLUME 96.8 fl (80.0-96.0); RED BLOOD COUNT 3.49 10^6/uL (4.30-6.10); WHITE BLOOD COUNT 4.5 10^3/uL (4.0-10.0)
[2021-04-20 07:07] LABS: CALCIUM LEVEL 8.3 MG/DL (8.8-10.2); CREATININE FOR GFR 1.65 MG/DL (0.70-1.30); GLOMERULAR FILTRATION RATE 42.4 (>35)
[2021-04-20 07:11] LABS: PLATELET COUNT, AUTOMATED 92 10^3/uL (150-450)
[2021-04-20] MEDS: ASPIRIN 81 MG CHEW TABLET PO SCH (08:00)
[2021-04-20] MEDS: DONEPEZIL 5 MG TAB PO SCH (08:00)
[2021-04-20] MEDS: TAMSULOSIN 0.4 MG CAP PO SCH (08:00)
[2021-04-20] MEDS: MEMANTINE 5MG TABLET (NAMENDA) PO SCH ×2 (08:00→20:28)
[2021-04-20] MEDS: QUEtiapine FUMARATE 25 MG TAB PO SCH ×2 (08:00→20:29)
[2021-04-20] MEDS: amLODIPine 5 MG TAB PO SCH (08:00)
[2021-04-20] MEDS: FOLIC ACID 1 MG TAB PO SCH (08:01)
[2021-04-20] MEDS: CILOSTAZOL 100 MG TAB (PLETAL) PO SCH ×2 (08:01→16:43)
[2021-04-20] MEDS: ROSUVASTATIN 10 MG TAB (CRESTOR) PO SCH (08:01)
[2021-04-20] MEDS: LEVOTHYROXINE 137MCG TABLET (0.137MG) PO SCH (08:01)
--- NOTE | 2021-04-20 08:45 | CR ---
CONSULTATION DATE: 04/19/2021 REQUESTING PHYSICIAN: Alvin Chung DO CONSULTING PHYSICIAN: Ernesto Dawn DO REASON FOR CONSULTATION: Oligoanuric acute renal failure. HISTORY OF PRESENT ILLNESS: Mr. Pablo Claudio is previously unknown to me. He is an 85-year-old male with a past medical history of dementia, hypertension, history of urinary retention, aortic stenosis, carotid artery stenosis, coronary artery disease status post coronary artery bypass graft (CABG), and other comorbid conditions mentioned below. Patient has a baseline creatinine of around 1.2. The patient was brought to the emergency room on 04/16/2021 with complaint of worsening confusion and dementia and headache at home. Of note, over the past several months his beta melvi dose has been reduced due to bradycardia. In the emergency room, he was found to be in hypertensive emergency with systolic blood pressure greater than 200. His creatinine on admission was at baseline (creatinine = 1.2). The patient's blood pressure was controlled with various agents including oral Lasix, amlodipine, hydralazine, nicardipine infusion, and lisinopril. Of note, when I reviewed the patient's home antihypertensive regimen he does not take either an angiotensin-converting enzyme (PAXTON) inhibitor nor an ARB. The patient's blood pressure subsequently improved and within 24 hours of admission his systolic blood pressure dropped by about 100 points from 200 down to systolic 100-110. The patient subsequently had decreased urine output and creatinine today has risen to 2.5 and patient is oligoanuric and nephrology evaluation was requested for help in the management of his acute kidney failure. PAST MEDICAL HISTORY: 1. Chronic kidney disease (CKD) stage II, baseline creatinine around 1.2. 2. Peripheral arterial disease status post right femoral endarterectomy and right femoral popliteal bypass. 3. History of urinary retention on Flomax. 4. History of acute blood loss anemia requiring blood transfusion. 5. Remote history of alcoholism. 6. Chronic anxiety. 7. Aortic stenosis. 8. Asthma. 9. Carotid artery stenosis. 10. Edematous colon polyp. 11. Chronic obstructive pulmonary disease (COPD). 12. Coronary artery disease status post CABG in 2014. 13. Dementia. 14. Type 2 diabetes now diet controlled. 15. Diverticulosis. 16. Gastroesophageal reflux disease (GERD). 17. Hyperlipidemia. 18. Hypothyroidism. 19. History of stroke. PAST SURGICAL HISTORY: CABG, left carotid endarterectomy, cataract surgery, bilateral knee arthroscopy, vascular surgery of the right knee, femoral popliteal bypass, right femoral endarterectomy. HOME MEDICATIONS: - alprazolam 0.25 mg nightly - aspirin 81 mg by mouth daily - vitamin D 1000 units daily - famotidine 40 mg by mouth nightly - folic acid 1 mg daily - levothyroxine 135 mcg 6 days a week - potassium chloride 10 mEq daily - rosuvastatin 10 mg daily - sertraline 25 mg daily - Flomax 0.4 mg daily - Aricept 20 mg daily - Dupixent 300 mg subcutaneously every 2 weeks - Namenda 14 mg daily - Pletal 50 mg twice a day - Lumigan eye drops ALLERGIES: CEPHALEXIN, PLAVIX, METFORMIN, METHOTREXATE, ISOTHIZAZOLINONES. SOCIAL HISTORY: He is . He does not currently smoke. He quit drinking many years ago. FAMILY HISTORY: Sister with diabetes, coronary disease. REVIEW OF SYSTEMS: He is a poor historian and review of systems is greatly limited. He denies chest pain. He reports decreased urine. He denies shortness of breath. PHYSICAL EXAMINATION: Vital signs: Temperature 97.7, pulse 93, respiratory rate 16, blood pressure 99/46, saturating 95% on room air. Intake yesterday was 1250, urine output yesterday was recorded as 0 mL and only one void, weight in the bed scale today is 69.2 kg. General: Patient is seen lying flat in bed, awake and alert but oriented only to himself. He makes eye contact. His tongue is dry. Neck is supple. Jugular veins are not elevated. Heart sounds are regular. There is a systolic murmur. There is no leg edema. There is no dependent edema. His lungs are clear to auscultation bilaterally. There is no crackle or wheeze. Abdomen is soft and nontender. Genitourinary: His bladder is mildly palpable. Extremities: There is no clubbing, cyanosis, or edema. Neurologic: He is oriented only to person, but does cooperate with physical exam. LABORATORY DATA: Sodium 142, potassium 4.3, bicarbonate 27, BUN 40, creatinine 2.5, calcium 9.1, hemoglobin 11.8, platelet 104. Renal ultrasound done yesterday shows right kidney 9.1 cm and left kidney 8.8 cm. There is an exophytic cyst of the right kidney. Chest x-ray done 04/16/2021, no active disease. Echocardiogram done 04/16/2021, grade 1 diastolic dysfunction with preserved left ventricular ejection fraction. INPATIENT MEDICATIONS: He has received two doses of lisinopril 10 mg each on 04/16/2021. He received a dose of Lasix 20 mg times one on 04/16/2021. His current medications are: - Tylenol as needed - Xanax 0.25 mg by mouth as needed nightly - amlodipine 5 mg daily - aspirin 81 mg by mouth daily - cilostazol 50 mg by mouth twice a day - Aricept 20 mg by mouth daily - Lovenox 30 mg subcutaneous daily - famotidine 20 mg by mouth nightly - folic acid 1 mg by mouth daily - Synthroid 137 mcg six days a week - memantine 10 mg by mouth twice a day - Zofran as needed - potassium chloride 10 mEq by mouth daily - Seroquel 25 mg by mouth twice a day - Rozerem 8 mg by mouth nightly as needed - rosuvastatin 10 mg by mouth daily - Zoloft 25 mg by mouth nightly - Flomax 0.4 mg by mouth daily PROBLEMS: 1. Acute oligoanuric renal failure superimposed on chronic kidney disease (CKD) stage II. Patient's creatinine on admission = 1.2 and was at his usual baseline. His systolic blood pressure dropped from greater than 200 to systolic 100-110 within 24 hours of admission and he had an attendant acute kidney injury with the aggressive control of his blood pressure along with concomitant use of angiotensin-converting enzyme (PAXTON) inhibitor and Lasix diuretic in this patient who does not take any diuretic nor angiotensin-converting enzyme (PAXTON) nor ARB at home routinely. I would hold all angiotensin-converting enzyme (PAXTON), ARB, nonsteroidal anti-inflammatory drug (NSAID), and diuretic at this time. He has a history of urinary retention. I asked the nurse to get a bladder scan and there was over 400 mL of urine in the bladder. Aguilar catheter was subsequently placed and patient is started on half-normal saline at 80 mL/hour. 2. Status post hypertensive emergency. Patient had rather quick control of blood pressure with systolic over 200 on admission and down to about systolic 100-110 24 hours later. I am adding generous holding parameters to the amlodipine as his systolic is only in the 90s at the present time and the patient is in acute renal failure. Please keep off angiotensin-converting enzyme (PAXTON), ARB, and diuretic at this time. 3. Hypokalemia. Patient is receiving potassium supplementation and I am stopping that given that he is in acute renal failure with risk of hyperkalemia. 4. History of urinary retention. The patient takes Flomax and has a history of acute urinary retention. His present bladder scan showed a little over 400 mL of urine and I am having nursing staff place Aguilar catheter. 5. History of diastolic congestive heart failure. Echocardiogram noted with grade 1 diastolic dysfunction. Patient has no findings of fluid overload presently. I am starting him on half-normal saline at 80 mL/hour and we will keep a close eye on his volume status. 6. Renal cyst. I discussed with his that no followup of the renal cyst is needed. He does have mild atrophic kidneys bilaterally secondary to chronic hypertension and likely hypertensive "small vessel" nephrosclerosis. Thank you for involving me in the care of Mr. Claudio, I will be happy to follow him along with you.
[2021-04-20 14:00] VITALS: BP 154/59
[2021-04-20] MEDS ORDERED: ALPRAZolam 0.25 MG TAB PO PRN (16:20)
--- NOTE | 2021-04-20 19:01 | IPN ---
NEPHROLOGY PROGRESS NOTE DATE: 04/20/2021 SUBJECTIVE: Mr. Shah is seen and examined this morning at the bedside. I also spoke with his . The patient remains pleasantly demented and does not offer any complaints. He has been on IV fluids. His renal function has improved after gentle IV hydration, placement of Aguilar catheter, less aggressive control of blood pressure. OBJECTIVE: PHYSICAL EXAMINATION: VITAL SIGNS: Temperature 97.3, pulse 61, respiratory rate 17, blood pressure 154/5, saturating 95% on room air. INTAKE AND OUTPUT: Intake yesterday was 1.6 liters. Urine output yesterday was one liter. Weight in the bed scale today is not recorded. GENERAL APPEARANCE: The patient is seen lying in bed fairly flat, elderly male, awake, alert, oriented only to person, tells me the year is 1979, thinks that he is at home in his living room but is not in any distress. HEENT: Tongue is moist. NECK: Supple. Jugular veins are not elevated. HEART: Regular. S1, S2. LUNGS: Clear to auscultation bilaterally. No crackles or rales. ABDOMEN: Soft and nontender. There are bowel sounds. GENITOURINARY: Indwelling Aguilar catheter. EXTREMITIES: Negative for clubbing, cyanosis, or edema. SKIN: Warm and dry. LABORATORY STUDIES: White count 4.5, hemoglobin 10.7, platelet count 92. Sodium 139, potassium 4.0, bicarbonate 28, BUN 39, creatinine 1.6. INPATIENT MEDICATIONS: The patient has been on half normal saline at 80 mL an hour. He is getting Amlodipine 5 mg p.o. daily. His Xanax was stopped. His remainder medications are unchanged as compared to yesterday. PROBLEMS: 1. Acute kidney injury superimposed on chronic kidney disease stage 2 baseline creatinine is around 1.2 and he came in at his baseline renal function. His acute kidney injury was in the setting of renal hypoperfusion (100 point drop in systolic blood pressure within 24 hours of admission with concomitant use of Lisinopril and Lasix in this patient who does not take any diuretics/oneal inhibitors/ARB at home routinely). He also had urinary retention. He had a Aguilar catheter placed. He was started on half normal saline. His renal function has improved. His urine output has improved. 2. Status post hypertensive emergency - The patient had a rather quick control of blood pressure with a systolic drop of about 100 points within 24 hours of admission. He is now on Amlodipine and I suggest to keep his blood pressure around systolic 140's. A range of systolic 130 to 150 is reasonable. Hydralazine can be added if necessary. Please keep him off of oneal, ARB or diuretics at this time. Additionally, now that his renal function is recovering, I am stopping his IV fluids and that will also help in terms of blood pressure control. 3. Hypokalemia his supplementation was stopped given recent acute kidney injury. 4. History of urinary retention at home he is on Flomax. He has a history of urinary retention. He had a Aguilar catheter placed with 400 mL of retention. He can have removal of Aguilar catheter with trial of void prior to discharge but I would keep it in for at least another day. 5. History of diastolic congestive heart failure echocardiogram noted grade one diastolic dysfunction. There are no signs of fluid overload. He received half normal saline at 80 mL an hour for about 24 hours. I am stopping it now as he is in renal recovery.
[2021-04-20] MEDS: ENOXAPARIN 30MG/0.3ML SYRINGE (J1650 PER 10MG) SC SCH (20:28)
[2021-04-20] MEDS: FAMOTIDINE 20 MG TAB PO SCH (20:29)
[2021-04-20] MEDS: RAMELTEON 8 MG TAB (ROZEREM) PO PRN (20:29)
[2021-04-20] MEDS: SERTRALINE HCL 25 MG TABLET PO SCH (20:29)
--- NOTE | 2021-04-20 20:57 | IPNPDOC ---
Text Note Date of Service The patient was seen on 04/20/21. NOTE Hospitalist Progress Note Subjective: Awake and alert, pleasantly confused. He reports that he is feeling great, does not have any pain anywhere. Nursing staff mentions that he was becoming somewhat agitated this afternoon and was pulling on his Aguilar, but with repositioning of his Aguilar that seemed to help him. I have also changed his PRN dose of Ativan from QHS only to BID as needed. Otherwise he seems to be doing much better on his new regimen of Seroquel twice a day. Objective: General: Not in any acute distress. HEENT: Head normocephalic, atraumatic, sclera are nonicteric. Hearing is grossly intact to conversation. Respiratory: Clear to auscultation bilaterally with no wheezes, rales, or rhonchi. Cardiovascular: Regular rate and rhythm, with no rubs, gallops, or murmur. Abdomen: Soft, nontender, nondistended, no hepatosplenomegaly appreciated. Aguilar catheter now present, draining clear yellow urine Extremities: 2+ pulses in the radial and dorsalis pedis bilaterally. No evidence of clubbing or cyanosis. Assessment: Acute oliguric renal failure Hypertensive emergency, now resolved Echocardiogram showing valvular disease, but no acute findings Dementia Benign prostatic hypertrophy Peripheral artery disease Hypothyroidism Plan: Renal failure is improving, after discussion with nephrology appears this is likely secondary to a combination of a large drop in his blood pressure, PAXTON in hibitor, loop diuretic and, and perhaps urinary retention as well. We will not be as aggressive with controlling his blood pressure at this time as it will likely help perfuse his kidneys. Otherwise, once his renal function returns back to normal he would be a likely candidate for discharge. Anticipate discharge in the next few days. [facility] is actively working with the family toward appropriate placement for him. VS,Fishbone, I+O VS, Fishbone, I+O Laboratory Tests 04/20/21 06:14 04/20/21 06:15 Vital Signs Date Time Temp Pulse Resp B/P (MAP) Pulse Ox O2 Delivery O2 Flow Rate FiO2 04/20/21 14:00 97.3 61 17 154/59 (90) 95 Room Air I&O- Last 24 Hours up to 6 AM 04/20/21 06:00 Intake Total 2240 ml Output Total 1375 ml Balance 865 ml MELISSA GREENBERG DO April 20, 2021 20:56
[2021-04-20 22:00] VITALS: BP 162/72
[2021-04-21] MEDS ORDERED: LORazepam 0.5 MG TAB PO PRN (00:30)
[2021-04-21] MEDS ORDERED: ALPRAZolam 0.5 MG TAB PO PRN (01:00)
[2021-04-21 07:10] LABS: HEMATOCRIT 33.9 % (42.0-52.0); HEMOGLOBIN 10.6 g/dl (13.5-17.5); MEAN CORPUSCULAR HEMOGLOBIN 30.4 pg (27.0-33.0); MEAN CORPUSCULAR HGB CONC 31.3 g/dl (32.0-36.5); MEAN CORPUSCULAR VOLUME 97.1 fl (80.0-96.0); RED BLOOD COUNT 3.49 10^6/uL (4.30-6.10); WHITE BLOOD COUNT 4.8 10^3/uL (4.0-10.0)
[2021-04-21 07:13] LABS: PLATELET COUNT, AUTOMATED 95 10^3/uL (150-450)
[2021-04-21] MEDS: CILOSTAZOL 100 MG TAB (PLETAL) PO SCH (07:30)
[2021-04-21 07:36] LABS: BLOOD UREA NITROGEN 25 MG/DL (7-18); CALCIUM LEVEL 8.2 MG/DL (8.8-10.2); CARBON DIOXIDE LEVEL 30 MEQ/L (21-32); CHLORIDE LEVEL 109 MEQ/L (98-107); CREATININE FOR GFR 1.14 MG/DL (0.70-1.30); GLOMERULAR FILTRATION RATE > 60.0 (>35); GLUCOSE, FASTING 93 MG/DL (70-100); POTASSIUM SERUM 4.2 MEQ/L (3.5-5.1); SODIUM LEVEL 143 MEQ/L (136-145)
[2021-04-21 10:08] VITALS: BP 164/70
[2021-04-21] MEDS: MEMANTINE 5MG TABLET (NAMENDA) PO SCH (10:08)
[2021-04-21] MEDS: ASPIRIN 81 MG CHEW TABLET PO SCH (10:08)
[2021-04-21] MEDS: ACETAMINOPHEN 500 MG TAB PO PRN (10:09)
[2021-04-21] MEDS: LEVOTHYROXINE 137MCG TABLET (0.137MG) PO SCH (10:09)
[2021-04-21] MEDS: QUEtiapine FUMARATE 25 MG TAB PO SCH (10:09)
[2021-04-21] MEDS: FOLIC ACID 1 MG TAB PO SCH (10:09)
[2021-04-21] MEDS: ROSUVASTATIN 10 MG TAB (CRESTOR) PO SCH (10:09)
[2021-04-21] MEDS: DONEPEZIL 5 MG TAB PO SCH (10:09)
[2021-04-21] MEDS: TAMSULOSIN 0.4 MG CAP PO SCH (10:09)
[2021-04-21] MEDS ORDERED: QUET25TA3 PO (11:25)
[2021-04-21] MEDS ORDERED: RAME8TAB2 PO (11:25)
[2021-04-21] MEDS ORDERED: AMLO1TAB25 PO (11:25)
--- NOTE | 2021-04-21 13:09 | DS.PDOC ---
Discharge Summary General Date of Admission April 16, 2021 at 18:53 Date of Discharge 04/21/21 Discharge Summary PROCEDURES PERFORMED DURING STAY: [None]. ADMITTING DIAGNOSES: Acute oliguric renal failure Hypertensive emergency, now resolved Dementia Benign prostatic hypertrophy Peripheral artery disease Hypothyroidism diastolic congestive heart failure Hypokalemia History of urinary retention DISCHARGE DIAGNOSES: Acute oliguric renal failure Hypertensive emergency, now resolved diastolic congestive heart failure Dementia Benign prostatic hypertrophy Peripheral artery disease Hypothyroidism Hypokalemia History of urinary retention COMPLICATIONS/CHIEF COMPLAINT: Hypertensive Emergency. HISTORY OF PRESENT ILLNESS:Mr. Clarita Claudio is previously unknown to me. He is an 85-year-old male with a past medical history of dementia, hypertension, history of urinary retention, aortic stenosis, carotid artery stenosis, coronary artery disease status post coronary artery bypass graft (CABG), and other comorbid conditions mentioned below. Patient has a baseline creatinine of around 1.2. The patient was brought to the emergency room on 04/16/2021 with complaint of worsening confusion and dementia and headache at home. Of note, over the past several months his beta melvi dose has been reduced due to bradycardia. In the emergency room, he was found to be in hypertensive emergency with systolic blood pressure greater than 200. His creatinine on admission was at baseline (creatinine = 1.2). The patient's blood pressure was controlled with various agents including oral Lasix, amlodipine, hydralazine, nicardipine infusion, and lisinopril. Of note, when I reviewed the patient's home antihypertensive regimen he does not take either an angiotensin-converting enzyme (PAXTON) inhibitor nor an ARB. The patient's blood pressure subsequently improved and within 24 hours of admission his systolic blood pressure dropped by about 100 points from 200 down to systolic 100-110. The patient subsequently had decreased urine output and creatinine today has risen to 2.5 and patient is oligoanuric HOSPITAL COURSE: The patient's blood pressure subsequently improved and within 24 hours of admission his systolic blood pressure dropped by about 100 points from 200 down to systolic 100-110. The patient subsequently had decreased urine output and creatinine has risen to 2.5 and patient is oligoanuric. Patient received IV fluid with positive dynamic, oliguria resolved. Blood pressure became stable DISCHARGE MEDICATIONS: Please see below. ALLERGIES: Please see below. PHYSICAL EXAMINATION ON DISCHARGE: VITAL SIGNS: Please see below. General: Patient is seen lying flat in bed, awake and alert but oriented only to himself. He makes eye contact. His tongue is dry. Neck is supple. Jugular veins are not elevated. Heart sounds are regular. There is a systolic murmur. There is no leg edema. There is no dependent edema. His lungs are clear to auscultation bilaterally. There is no crackle or wheeze. Abdomen is soft and nontender. Genitourinary: His bladder is mildly palpable. Extremities: There is no clubbing, cyanosis, or edema. Neurologic: He is oriented only to person, but does cooperate with physical LABORATORY DATA: Please see below. IMAGING: [facility] NAME: CLARITA CLAUDIO DATE OF : 1935 AGE: 85 SEX: M REPORT #: [id number] ROOM: [facility] TECHNOLOGIST: [facility] DOCTOR: Rian Ornelas MD Ordered for Date&Time: 04/18/211852 cc: [~ rep ct ivnm] Service Date&Time: 04/18/21914 This report is in Signed status. If this report is in a DRAFT status it has not yet been reviewed by the radiologist for accuracy. Thank you for having your radiology procedures performed at [facility] RADIOLOGY REPORT Date&Time printed: [~ rep prt dt last] [~ rep prt tm last] Page 2 of 2 [place] [address] RADIOLOGY REPORT This report is in Signed status. If this report is in a DRAFT status it has not yet been reviewed by the r adiologist for accuracy. Thank you for having your radiology procedures performed at [facility] RADIOLOGY REPORT Date&Time printed: [~ rep prt dt last] [~ rep prt tm last] Page 1 of 1 INDICATION: Hypertension. R/O Renal Artery Stenosis COMPARISON: None TECHNIQUE: Real time cruz scale ultrasound examination using curved array transducer followed by color Doppler evaluation of the renal vasculature. FINDINGS: Right kidney measures 9.1 x 6.2 x 4.7 cm and includes 2.4 x 2.9 x 3.1 cm cortical exophytic midpole cyst. No hydronephrosis, nephrolithiasis, or renal mass lesion. Left kidney measures 8.8 x 5.4 x 4.5 cm without hydronephrosis, nephrolithiasis, cystic or renal mass lesion. Bladder is under distended. Color Doppler evaluation is incomplete due to interposed bowel gas obscuring the renal arteries. RIGHT KIDNEY Intrarenal resistive indices: 0.75-0.77 Intrarenal acceleration times: 0.039-0.042 LEFT KIDNEY Intrarenal resistive indices: 0.75-0.81 Intrarenal acceleration times: 0.042-0.050 IMPRESSION: 1. Somewhat atrophic appearance to the kidneys with 3.1 cm right renal cyst. 2. Doppler evaluation is incomplete due to interposed bowel gas. However, increased resistive indices are consistent with chronic medical renal disease and small ve ssel renovascular disease. <Electronically signed by Jameson Mayberry > 04/18/21952 DD: Jameson Mayberry MD 04/18/21949 DT: TROY 04/18/21952 DS: MELVA 04/18/2194904/18/21949 [~ rep ct labl] PROGNOSIS: Fair ACTIVITY: [As tolerated]. DIET: Cardiac DISCHARGE PLAN: snf ITEMS TO FOLLOWUP ON ON OUTPATIENT: Follow-up with PCP in 3-5 days DISCHARGE CONDITION: [Stable]. TIME SPENT ON DISCHARGE: 40 minutes. Vital Signs/I&Os Vital Signs Date Time Temp Pulse Resp B/P (MAP) Pulse Ox O2 Delivery O2 Flow Rate FiO2 04/21/21 10:08 62 164/70 04/20/21 22:00 97.8 18 100 Room Air I&O- Last 24 Hours up to 6 AM 04/21/21 06:00 Intake Total 1175 ml Output Total 2150 ml Balance -975 ml Laboratory Data Labs 24H Laboratory Tests 2 04/21/21 06:47: Nucleated Red Blood Cells % (auto) 0.0, Immature Platelet Fraction 2.6, Anion Gap 4L, Glomerular Filtration Rate > 60.0, Calcium Level 8.2L 04/21/21 10:18: Coronavirus (COVID-19)(PCR) NEGATIVE CBC/BMP Laboratory Tests 04/21/21 06:47 Microbiology Microbiology 04/16/21 Respiratory Virus Panel (PCR) ([facility]) - Final, Complete Discharge Medications Scheduled Amlodipine Besylate (Amlodipine Besylate) 10 Mg Tablet, 10 MG PO DAILY Aspirin (Aspirin) 81 Mg Tab.chew, 81 MG PO DAILY, (Reported) Bimatoprost (Lumigan) 50 Drop/2.5 Ml Justine, 1 DROP OU QHS, (Reported) Cholecalciferol (Vitamin D3) (Vitamin D3) 1,000 Unit Tablet, 1,000 UNITS PO DAILY, (Reported) Cilostazol (Cilostazol) 50 Mg Tablet, 50 MG PO BID, (Reported) Donepezil HCl (Donepezil HCl) 10 Mg Tablet, 20 MG PO DAILY, (Reported) Dupilumab (Dupixent) 300 Mg/2 Ml Inj, 2 ML SC Q2WK, (Reported) Famotidine (Famotidine) 40 Mg Tablet, 40 MG PO QHS, (Reported) Folic Acid (Folic Acid) 1 Mg Tablet, 1 MG PO DAILY, (Reported) Levothyroxine Sodium (Levothyroxine Sodium) 137 Mcg Tablet, 137 MCG PO 6XWK, (Reported) EVERYDAY BUT SATURDAY Memantine HCl (Memantine HCl ER) 14 Mg Cap.spr.24, QHS, (Reported) Potassium Chloride (Klor-Con M10) 10 Meq Tab.er.prt, 10 MEQ PO DAILY, (Reported) Quetiapine Fumarate (Quetiapine Fumarate) 25 Mg Tablet, 25 MG PO BID Rosuvastatin Calcium (Rosuvastatin Calcium) 10 Mg Tablet, 10 MG PO DAILY, (Reported) Sertraline HCl (Sertraline HCl) 25 Mg Tablet, 25 MG PO QHS, (Reported) Tamsulosin Hcl (Tamsulosin HCl) 0.4 Mg Capsule, 0.4 MG PO DAILY, (Reported) Scheduled PRN Alprazolam (Alprazolam) 0.25 Mg Tablet, 0.25 MG PO QHS PRN for ANXIETY, (Reported) Ramelteon (Ramelteon) 8 Mg Tablet, 8 MG PO QHS PRN for INSOMNIA Allergies Coded Allergies: Isothiazolinones (Verified Allergy, Mild, RASH, 04/16/21) cephalexin (Verified Allergy, Mild, RASH, 04/16/21) clopidogrel (Verified Allergy, Mild, ITCHING, 04/16/21) metformin (Verified Allergy, Unknown, 04/16/21) methotrexate (Verified Allergy, Unknown, 04/16/21) CHRIS RAMOS DO April 21, 2021 13:09
--- NOTE | 2021-04-21 15:44 | IPN ---
PROGRESS NOTE DATE: 04/21/2021 SUBJECTIVE: Mr. Claudio is seen and examined this morning at the bedside. His and his son are present. He has no complaint. He is eating. He is being discharged to the custodial with a Aguilar catheter. He denies any shortness of breath. He is saturating well on room air. His renal function has recovered back to usual baseline. Creatinine is 1.1 today. OBJECTIVE: VITAL SIGNS: Temperature 97.8, pulse 67, respiratory rate 18, blood pressure systolic 150s to 160s/diastolic 70s. Saturating 100% on room air. INTAKE AND OUTPUT: Intake yesterday was 1.8 liters. Urine output yesterday was 2.5 liters. Weight on the bed scale today is not recorded. GENERAL: The patient is seeing sitting upright in bed eating, awake, alert, and oriented only to self. HEENT: Extraocular muscles are intact. Tongue is moist. NECK: Supple. Jugular veins are not elevated. HEART: Sounds are regular. There is no leg edema. LUNGS: Clear to auscultation bilaterally. No crackle or rale. ABDOMEN: Soft and nontender. GENITOURINARY: Shows indwelling Aguilar catheter. EXTREMITIES: Negative for clubbing, cyanosis, or edema. SKIN: Warm and dry. NEUROLOGIC: He is only oriented to himself. LABORATORY DATA: Sodium 143, potassium 4.2, bicarbonate 30, BUN 25, creatinine 1.1. Hemoglobin 10.6, platelets 95,000. INPATIENT MEDICATIONS: I note that the primary team increased his amlodipine to 10 mg p.o. daily and resumed Xanax p.r.n. anxiety. The remainder of his medications are unchanged as compared to yesterday. PROBLEMS: 1. Status post acute kidney injury. The patient had a kidney injury in the setting of renal hypoperfusion from aggressive blood pressure control with concomitant use of angiotensin converting enzyme inhibitor (PAXTON), diuretic, and mild urinary retention requiring Aguilar catheter. He received intravenous (IV) fluids for less than 24 hours. He had Aguilar catheter placed and his PAXTON inhibitor as stopped. His renal function has recovered to baseline. Creatinine is 1.1 today. 2. Hypertension status post hypertensive emergency. His amlodipine dose has been increased as his systolic is high at 150s to 160. Hydralazine can also be added as needed. 3. History of urinary retention. He continues on Flomax. He now has a Aguilar catheter placed and he is being discharged with the catheter. 4. History of diastolic congestive heart failure. Volume status is acceptable. There is no sign of fluid overload. 5. Hypokalemia. He is off of potassium supplementation. His potassium level remains normal. I would keep him off of potassium supplements at this point. 6. Disposition: The patient is stable for discharge from a nephrology point of view.
== END 2021-04-21 13:40 | DRG 305 ==
LOC: M ED 12:35 → M ED INP 18:53 → ENRESERV 19:35 → M ICU 20:05 → M PCU 04-17 17:24 → M MSPAV 04-18 13:53
PROVIDERS: ADMIT Family Medicine; ATTEND Internal Medicine
DX: I16.1 Hypertensive emergency (principal); I67.4 Hypertensive encephalopathy; F03.91 Unspecified dementia, unspecified severity, with behavioral disturbance; N17.9 Acute kidney failure, unspecified; I50.32 Chronic diastolic (congestive) heart failure; E87.6 Hypokalemia; N40.0 Benign prostatic hyperplasia without lower urinary tract symptoms; E03.9 Hypothyroidism, unspecified; I11.0 Hypertensive heart disease with heart failure; I25.10 Atherosclerotic heart disease of native coronary artery without angina pectoris; Z95.1 Presence of aortocoronary bypass graft; Z79.899 Other long term (current) drug therapy; Z79.82 Long term (current) use of aspirin; Z88.8 Allergy status to other drugs, medicaments and biological substances; J45.909 Unspecified asthma, uncomplicated; K57.30 Diverticulosis of large intestine without perforation or abscess without bleeding; K21.9 Gastro-esophageal reflux disease without esophagitis; E78.5 Hyperlipidemia, unspecified; I73.9 Peripheral vascular disease, unspecified; F32.9 Major depressive disorder, single episode, unspecified; F41.9 Anxiety disorder, unspecified; Z86.73 Personal history of transient ischemic attack (TIA), and cerebral infarction without residual deficits

== ENCOUNTER 2021-07-10 19:13 | Emergency (ER) | payer MEDICARE, OTHER, MEDICAID ==
[~2021-07-10] VITALS: Ht 172.7 cm; Wt 77.3 kg
[~2021-07-10 19:13] MED LIST changes: +ALPR0.25 PO; +AMLO1TAB25 PO; +CILO50TA PO; +D31000TA2 PO; +DONE10TA90 PO; +FAMO40TA3 PO; +KLOR10TA76 PO; +LEVO137T2 PO; +MEMA14CA; +QUET1TAB17 PO; +RAME8TAB2 PO; +ROSU10TA6 PO; +SERT25TA21 PO; +TAMS1CAP17 PO
[2021-07-10 21:03] LABS: BASO % 0.6 % (0.0-1.0); EOS % 0.4 % (0.0-3.0); HEMATOCRIT 39.5 % (42.0-52.0); HEMOGLOBIN 12.8 g/dl (13.5-17.5); LYMPH # 0.4 10^3/uL (1.5-5.0); LYMPH % 6.8 % (24.0-44.0); MEAN CORPUSCULAR HEMOGLOBIN 30.6 pg (27.0-33.0); MEAN CORPUSCULAR HGB CONC 32.4 g/dl (32.0-36.5); MEAN CORPUSCULAR VOLUME 94.5 fl (80.0-96.0); MONO # 0.5 10^3/uL (0.0-0.8); MONO % 9.2 % (2.0-8.0); NEUTROPHILS # 4.5 10^3/uL (1.5-8.5); NEUTROPHILS % 82.3 % (36.0-66.0); PLATELET COUNT, AUTOMATED 127 10^3/uL (150-450); RED BLOOD COUNT 4.18 10^6/uL (4.30-6.10); WHITE BLOOD COUNT 5.4 10^3/uL (4.0-10.0)
[2021-07-10] MEDS ORDERED: NS 1,000 ML IV ONE (21:10)
[2021-07-10 21:33] LABS: ALBUMIN 3.4 GM/DL (3.2-5.2); ALT/SGPT 22 U/L (12-78); BILIRUBIN,DIRECT 0.2 MG/DL (0.0-0.2); BILIRUBIN,TOTAL 0.8 MG/DL (0.2-1.0); BLOOD UREA NITROGEN 21 MG/DL (7-18); CALCIUM LEVEL 8.9 MG/DL (8.8-10.2); CARBON DIOXIDE LEVEL 29 MEQ/L (21-32); CHLORIDE LEVEL 104 MEQ/L (98-107); CREATININE FOR GFR 1.17 MG/DL (0.70-1.30); GLOMERULAR FILTRATION RATE > 60.0 (>35); GLUCOSE, FASTING 132 MG/DL (70-100); LIPASE 448 U/L (73-393); POTASSIUM SERUM 3.9 MEQ/L (3.5-5.1); SODIUM LEVEL 137 MEQ/L (136-145); TOTAL PROTEIN 6.6 GM/DL (6.4-8.2)
[2021-07-10 21:37] LABS: HEMOGLOBIN A1c 5.5 %
--- NOTE | 2021-07-10 21:57 | REPVR ---
PROCEDURE INFORMATION: Exam: XR Chest Exam date and time: 07/10/2021 9:22 PM Age: 85 years old Clinical indication: Other: Weakness TECHNIQUE: Imaging protocol: XR of the chest. Views: 1 view. COMPARISON: ID PORTABLE CHEST X-RAY 04/16/2021 1:06 PM FINDINGS: Lungs: Increased interstitial lung markings demonstrated bilaterally, findings stable in comparison to the prior study of 04/16/2021. No acute infiltrates. Pleural spaces: Unremarkable. No pleural effusion. No pneumothorax. Heart/Mediastinum: Unremarkable. No cardiomegaly. Bones/joints: Status post sternotomy. Osteoporosis. IMPRESSION: No significant interval change. Electronically signed by: Wil Limon On 07/10/2021 21:57:13 PM
[2021-07-11] MEDS ORDERED: ISOVUE-370 76% 100ML VIAL As Ordered ONE (00:23)
[2021-07-11] MEDS ORDERED: LIDOCAINE 2% 5ML JELLY UROJET TOP ONE (01:05)
--- NOTE | 2021-07-11 01:10 | REPVR ---
PROCEDURE INFORMATION: Exam: CT Head Without Contrast Exam date and time: 07/10/2021 11:01 PM Age: 85 years old Clinical indication: Altered mental status/memory loss; Confusion or disorientation; Additional info: Confusion, dementia, light headed TECHNIQUE: Imaging protocol: Computed tomography of the head without contrast. Radiation optimization: All CT scans at this facility use at least one of these dose optimization techniques: automated exposure control; mA and/or kV adjustment per patient size (includes targeted exams where dose is matched to clinical indication); or iterative reconstruction. COMPARISON: CT Head without contrast 04/16/2021 3:38 PM FINDINGS: Brain: No intracranial mass, focal mass effect or midline shift. No acute intracranial hemorrhage. Mild decreased attenuation in periventricular/centrum semiovale white matter. No focal effacement of cortical sulci to indicate acute cortical infarct. Prominent ventricles and CSF spaces suggest parenchymal volume loss. Paranasal sinuses: Visualized paranasal sinuses are unremarkable. Mastoid air cells: Mastoid air cells are normally aerated. Orbital cavity: Visualized globes and orbits are unremarkable. Bones/joints: No calvarial fracture or destructive process. Left frontal calvarial vascular [place] Soft tissues: No focal extracranial soft tissue swelling. IMPRESSION: 1. No acute intracranial abnormality. 2. 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 Electronically signed by: Onesimo Osborne On 07/11/2021 01:09:59 AM
--- NOTE | 2021-07-11 01:51 | REPVR ---
PROCEDURE INFORMATION: Exam: CT Abdomen And Pelvis With Contrast Exam date and time: 07/10/2021 11:01 PM Age: 85 years old Clinical indication: Other: Dizzy; Patient HX: Lipase elevated; Additional info: Abdominal pain, elevated lipase TECHNIQUE: Imaging protocol: Computed tomography of the abdomen and pelvis with contrast. Radiation optimization: All CT scans at this facility use at least one of these dose optimization techniques: automated exposure control; mA and/or kV adjustment per patient size (includes targeted exams where dose is matched to clinical indication); or iterative reconstruction. Contrast material: ISO; Contrast volume: 100 ml; Contrast route: INTRAVENOUS (IV); COMPARISON: RENAL US 04/18/2021 9:12 AM FINDINGS: Lungs: Mild bibasilar fibro-atelectatic change with slight interstitial coarsening. Heart: The left atrium measures 5.2 cm in its AP dimension. Liver: Normal. No mass. Gallbladder and bile ducts: Faint stones or sludge in the gallbladder. Pancreas: Normal. No ductal dilation. Spleen: Minimal splenic cysts measuring 5 mm. Adrenal glands: Normal. No mass. Kidneys and ureters: There is a right renal cyst measuring 2.3 cm with a Hounsfield measurement of -12 consistent with a simple cyst. No follow-up imaging is recommended. Mild right and minimal left hydronephrosis and hydroureter which is likely related to bladder distention. Stomach and bowel: Inverted cecum in the right upper quadrant. There is colonic diverticulosis without evidence of diverticulitis. Elongated sigmoid which extends into the epigastrium. Appendix: A normal appendix is seen. Intraperitoneal space: Trace perihepatic ascites is suggested. Vasculature: Occluded right fem-pop graft. Lymph nodes: Unremarkable. No enlarged lymph nodes. Urinary bladder: Prominent distention of the urinary bladder to the lower L3 level and is above the umbilicus. Reproductive: Unremarkable as visualized. Bones/joints: Status post sternotomy. Soft tissues: Unremarkable. IMPRESSION: 1. Status post sternotomy and mild cardiomegaly with mild bibasilar fibro-atelectatic change with slight interstitial coarsening. 2. Faint stones or sludge in the gallbladder. 3. Occluded right fem-pop graft. 4. Distention of the urinary bladder to the lower L3 level above the umbilicus with slight bilateral hydronephrosis which is attributed to bladder distention. 5. Trace perihepatic ascites posteriorly. 6. Colonic diverticulosis without diverticulitis. 7. Otherwise negative CT abdomen/pelvis. COMMENTS: Consistent with the [employer]'s Incidental Findings Committee white paper (J Am Amos Radiol 2018): Any incidental renal lesion less than 1 cm or classified as too small to characterize, or any incidental cystic renal lesion characterized as simple-appearing, is likely benign. No follow-up imaging is recommended for these lesions per consensus recommendations based on imaging criteria. Electronically signed by: Mil Mata On 07/11/2021 01:51:04 AM
[2021-07-11] MEDS ORDERED: BACT800T5 PO (03:54)
[2021-07-11] MEDS ORDERED: BACTRIM 160MG/800MG DS TAB PO ONE (03:55)
--- NOTE | 2021-07-11 07:43 | ECGEPIP ---
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
[2021-07-11 08:26] VITALS: BP 157/72
--- NOTE | 2021-07-11 11:42 | ED PDOC ---
Post-Departure Follow-Up [facility] review demonstrated dr melissa lopez is pcp ct abd/p faxed to him for fu Vivien Burrows MD Jul 11, 2021 11:42
== END 2021-07-11 08:39 | disposition home or self-care (01) ==
LOC: M ED 19:13
DX: N13.9 Obstructive and reflux uropathy, unspecified (principal); E11.9 Type 2 diabetes mellitus without complications; I50.9 Heart failure, unspecified; J44.9 Chronic obstructive pulmonary disease, unspecified; Z88.8 Allergy status to other drugs, medicaments and biological substances
CPT/HCPCS: 51702; 70450; 71045; 74177; 80048; 80076; 81001; 83036; 83690; 85025; 87086; 93005; 96360; 96361; 99285; Q9967